=== PATIENT | female | born 1945 | race Caucasian/White ===

== ENCOUNTER 2017-12-06 15:13 | Inpatient (IN) ==
[2017-12-06] MEDS ORDERED: 0.9 % Sodium Chloride 500 ML IVC ONE (16:07)
--- NOTE | 2017-12-06 16:07 | Emergency Department Note ---
Disposition Clinical Impression: Colitis, UTI (urinary tract infection), Diarrhea Disposition: Admitted As Inpatient Condition: Fair Referrals: Addison Jeffery [Primary Care Provider] - Forms: ED Satisfaction Letter General Adult HPI - General Chief complaint: ED Nausea/Vomiting/Diarrhea Stated complaint: "diarrhea,acute kidney injury sent by " Time Seen by Provider: 12/06/17 15:46 Source: family Limitations: age - History of Present Illness Pain Scale: 4 - Related Data Home Medications Medication Instructions Recorded Confirmed Alendronate Sodium 70 mg PO QWEEK 10/04/17 11/03/17 Carvedilol [Coreg] 6.25 mg PO BID 10/04/17 11/03/17 Ferrous Sulfate 325 mg PO DAILY 10/04/17 11/03/17 HYDROcodone/Acet 5/325 mg [[place] 1 tab PO Q6H PRN 10/04/17 11/03/17 5-325 mg] Insulin Glargine [Lantus] 50 unit SQ BID 10/04/17 11/03/17 LORazepam [Ativan] 0.5 mg PO BID 10/04/17 11/03/17 Levothyroxine Sodium 112 mcg PO DAILY 10/04/17 11/03/17 Metformin HCl 1,000 mg PO BID 10/04/17 11/03/17 Pantoprazole Sodium 40 mg PO HS 10/04/17 11/03/17 Rosuvastatin Calcium 5 mg PO HS 10/04/17 11/03/17 Valsartan 40 mg PO DAILY 10/04/17 11/03/17 Previous Rx's Medication Instructions Recorded Furosemide [Lasix] 40 mg PO BID #60 tablet 10/06/17 Potassium Chloride 10 meq PO DAILY #30 tab.er.prt 10/06/17 Allergies Allergy/AdvReac Type Severity Reaction Status Date / Time nitrofurantoin Allergy Rash Verified 10/04/17 13:52 [From Macrobid] Sulfa (Sulfonamide Allergy Rash Verified 10/04/17 13:52 Antibiotics) exenatide [From By[place]] AdvReac Vomiting Verified 10/04/17 13:52 liraglutide [From Victoza] AdvReac Vomiting Verified 10/04/17 13:52 Past Medical History - Past Medical History Medical history: Reports: arthritis, asthma, cancer, cirrhosis, CHF, diabetes, GERD, hypertension, kidney stones, thyroid disease Surgical history: Reports: cataract, cholecystectomy, hysterectomy Psychiatric history: Reports: anxiety, depression, panic disorder - Social History Smoking Status: Never smoker Smokeless Tobacco Status: No Alcohol use: Reports: none Drug use: Reports: none Physical Exam - General Limitations: age Course Vital Signs Temperature 98.9 F 12/06/17 15:18 Pulse Rate 74 12/06/17 15:18 Respiratory Rate 14 12/06/17 15:18 Blood Pressure 125/67 12/06/17 15:18 O2 Sat by Pulse Oximetry 94 12/06/17 15:18 Temperature 98.9 F 12/06/17 15:57 Pulse Rate 78 12/06/17 19:18 Respiratory Rate 20 12/06/17 19:18 Blood Pressure 114/52 12/06/17 19:18 O2 Sat by Pulse Oximetry 94 12/06/17 19:18 Oxygen Delivery Oxygen Delivery Room Air Medical Decision Making - Lab Data Result diagrams: 12/06/17 15:28 12/06/17 15:28 Lab Results 12/06/17 12/06/17 12/06/17 Range/Units 15:28 15:28 16:19 WBC 7.3 D (4.3-11.1) K/mcL RBC 3.31 L (3.82-4.97) M/mcL Hgb 10.6 L D (11.5-15.4) g/dL Hct 32.0 L (35.3-44.9) % MCV 96.7 (83.0-100.0) fL MCH 32.0 (28.0-33.3) pg MCHC 33.1 (31.6-35.5) g/dL RDW 16.2 H (11.5-14.5) % Plt Count 67 L (140-400) K/mcL MPV 11.2 (9.4-12.4) fL Immature Plt Fraction 5.4 (1.1-6.1) % Sodium 138 (136-145) mEq/L Potassium 3.0 L (3.5-5.1) mEq/L Chloride 106 (98-107) mEq/L Carbon Dioxide 26 (23-29) mEq/L BUN 18 (8-23) mg/dL Creatinine 0.87 (0.60-1.20) mg/dL Est GFR ( Amer) > 60 (> 60) Est GFR (Non-Af Amer) > 60 (> 60) BUN/Creatinine Ratio 21 (6-26) Glucose 68 L (70-105) mg/dL Calculated Osmolality 286 (280-300) Calcium 8.3 L (8.6-10.3) mg/dL Total Bilirubin 0.7 (0.3-1.0) mg/dL Direct Bilirubin 0.2 (0.0-0.2) mg/dL Indirect Bilirubin 0.5 (0.0-1.2) mg/dL AST 51 H (13-39) Units/L ALT 37 (7-52) Units/L Alkaline Phosphatase 87 (34-104) Units/L Serum Total Protein 6.1 L (6.4-8.9) g/dL Albumin 3.0 L (3.5-5.7) g/dL Globulin 3.1 (2.4-3.5) g/dL Albumin/Globulin Ratio 1.0 L (1.1-2.2) Lipase 76 (11-82) Units/L Urine Color Yellow (Yellow) Urine Clarity Clear (Clear) Urine pH 6.0 (5.0-8.0) pH Units Ur Specific [place] 1.011 (1.010-1.025) Urine Protein Negative (Neg-Trace) mg/dL Urine Glucose (UA) Normal (Normal) mg/dL Urine Ketones Negative (Negative) mg/dL Urine Blood Negative (Negative) Urine Nitrite Positive A (Negative) Urine Bilirubin Negative (Negative) Urine Urobilinogen Normal (Normal) mg/dL Ur Leukocyte Esterase Moderate H (Negative) Urine Microscopic RBC 0-3 (0-3) per hpf Urine Microscopic WBC 5-15 H (0-3) per hpf Ur Squamous Epith Cells Many H (None-Few) per lpf Urine Bacteria Moderate H (None-Few) per hpf Hyaline Casts None Seen (None-Few) per lpf Stool Occult Bld Scrn (Negative) 12/06/17 Range/Units 18:02 WBC (4.3-11.1) K/mcL RBC (3.82-4.97) M/mcL Hgb (11.5-15.4) g/dL Hct (35.3-44.9) % MCV (83.0-100.0) fL MCH (28.0-33.3) pg MCHC (31.6-35.5) g/dL RDW (11.5-14.5) % Plt Count (140-400) K/mcL MPV (9.4-12.4) fL Immature Plt Fraction (1.1-6.1) % Sodium (136-145) mEq/L Potassium (3.5-5.1) mEq/L Chloride (98-107) mEq/L Carbon Dioxide (23-29) mEq/L BUN (8-23) mg/dL Creatinine (0.60-1.20) mg/dL Est GFR ( Amer) (> 60) Est GFR (Non-Af Amer) (> 60) BUN/Creatinine Ratio (6-26) Glucose (70-105) mg/dL Calculated Osmolality (280-300) Calcium (8.6-10.3) mg/dL Total Bilirubin (0.3-1.0) mg/dL Direct Bilirubin (0.0-0.2) mg/dL Indirect Bilirubin (0.0-1.2) mg/dL AST (13-39) Units/L ALT (7-52) Units/L Alkaline Phosphatase (34-104) Units/L Serum Total Protein (6.4-8.9) g/dL Albumin (3.5-5.7) g/dL Globulin (2.4-3.5) g/dL Albumin/Globulin Ratio (1.1-2.2) Lipase (11-82) Units/L Urine Color (Yellow) Urine Clarity (Clear) Urine pH (5.0-8.0) pH Units Ur Specific [place] (1.010-1.025) Urine Protein (Neg-Trace) mg/dL Urine Glucose (UA) (Normal) mg/dL Urine Ketones (Negative) mg/dL Urine Blood (Negative) Urine Nitrite (Negative) Urine Bilirubin (Negative) Urine Urobilinogen (Normal) mg/dL Ur Leukocyte Esterase (Negative) Urine Microscopic RBC (0-3) per hpf Urine Microscopic WBC (0-3) per hpf Ur Squamous Epith Cells (None-Few) per lpf Urine Bacteria (None-Few) per hpf Hyaline Casts (None-Few) per lpf Stool Occult Bld Scrn Negative (Negative) Attestation Statement - Attestation Attestation: I examined this patient and my medical decision-making was reviewed with the Resident Physician. I agree with the documented findings, disposition and treatment plan as described except to the extent set forth below. Patient presents to the ED with a chief complaint of diarrhea. Onset about a week ago. Patient states a max of 5 episodes of watery diarrhea daily. She has had 2 today. She thinks is been some blood in it for the past 24 hours. Patient does admit to daily antibiotic for UTI prevention. On examination she is in no acute distress laying in bed. Her abdomen is soft. She is complaining of some mild diffuse tenderness but she has no guarding. Plan. Labs. Attempting to obtain a stool sample. Stool Hemoccult. CT abdomen pelvis. CT reviewed. We will check a lactic. Patient has not had any diarrhea since she has been here. IV Flagyl. Admitted to medicine.
[2017-12-06 16:31] LABS: Bilirubin,Urine Negative (Negative); Blood,Urine Negative (Negative); Clarity,Urine Clear (Clear); Color,Urine Yellow (Yellow); Glucose,Urine (UA) Normal (Normal); Ketones,Urine Negative (Negative); Leukocyte Esterase,Urine Moderate (Negative); Nitrite,Urine Positive (Negative); Protein,Urine Negative (Neg-Trace); Specific Gravity,Urine 1.011 (1.010-1.025); Urobilinogen,Urine Normal (Normal)
[2017-12-06 16:34] LABS: Bacteria,Urine Moderate per hpf (None-Few); Hyaline Casts,Urine None Seen per lpf (None-Few); RBC,Urine 0-3 per hpf (0-3); Squamous Epithelial Cell,Urine Many per lpf (None-Few)
[2017-12-06] MEDS ORDERED: Ondansetron 4 MG/2 ML VIAL IVP ONE (16:41)
[2017-12-06] MEDS ORDERED: Hyoscyamine 0.5 MG/ML MLS IVP ONE (16:42)
--- NOTE | 2017-12-06 16:45 | Emergency Department Note ---
Disposition Clinical Impression: Colitis UTI (urinary tract infection) Qualifiers: Urinary tract infection type: site unspecified Hematuria presence: without hematuria Qualified Code(s): N39.0 - Urinary tract infection, site not specified Diarrhea Qualifiers: Diarrhea type: unspecified type Qualified Code(s): R19.7 - Diarrhea, unspecified Disposition: Admitted As Inpatient Condition: Fair Time of Disposition: 19:49 Nausea/Vomiting/Diarrhea HPI - General Chief complaint: ED Nausea/Vomiting/Diarrhea Stated complaint: "diarrhea,acute kidney injury sent by " Time Seen by Provider: 12/06/17 15:46 Source: family Mode of arrival: ambulatory Limitations: age Nursing Notes Reviewed: Yes Vital Signs Reviewed: Yes - History of Present Illness HPI Narrative: 72-year-old female presents with the care of family for concerns of nausea vomiting diarrhea. Notes nonbloody diarrhea over the past week. Notes 5 episodes of loose stools a day. Decreased by mouth intake. Also reports some vomiting. Describes some abdominal discomfort as well. Patient's had a history of gallbladder as well as her appendix removed. Patient denies any chest pain or fevers. No urinary complaints. Patient denies any recent antibiotic use. Sent by the primary care physician for concerns of acute kidney injury and diarrhea. - Related Data Home Medications Medication Instructions Recorded Confirmed Alendronate Sodium 70 mg PO VAZQUEZ 10/04/17 12/06/17 Carvedilol [Coreg] 6.25 mg PO BID 10/04/17 12/06/17 Ferrous Sulfate 325 mg PO HS 10/04/17 12/06/17 HYDROcodone/Acet 5/325 mg [[place] 1 tab PO BID 10/04/17 12/06/17 5-325 mg] Insulin Glargine [Lantus] 50 unit SQ BID 10/04/17 12/06/17 LORazepam [Ativan] 0.5 mg PO BID 10/04/17 12/06/17 Levothyroxine Sodium 112 mcg PO DAILY 10/04/17 12/06/17 Pantoprazole Sodium 40 mg PO HS 10/04/17 12/06/17 Furosemide [Lasix] 40 mg PO DAILY 12/06/17 12/06/17 Furosemide [Lasix] 40 mg PO QPM PRN 12/06/17 12/06/17 Metformin HCl [Metformin HCl] 1,000 mg PO BID 12/06/17 12/06/17 Rosuvastatin Calcium [Rosuvastatin 5 mg PO HS 12/06/17 12/06/17 Calcium] Valsartan [Valsartan] 40 mg PO BID 12/06/17 12/06/17 cephALEXin [Keflex] 250 mg PO HS 12/06/17 12/06/17 Previous Rx's Medication Instructions Recorded Potassium Chloride 10 meq PO DAILY #30 tab.er.prt 10/06/17 Allergies Allergy/AdvReac Type Severity Reaction Status Date / Time nitrofurantoin Allergy Rash Verified 12/06/17 20:00 [From Macrobid] Sulfa (Sulfonamide Allergy Rash Verified 12/06/17 20:00 Antibiotics) exenatide [From [place]] AdvReac Vomiting Verified 12/06/17 20:00 liraglutide [From Victoza] AdvReac Vomiting Verified 12/06/17 20:00 All systems ED: reviewed and negative except as stated. Constitutional: Denies: fever Cardiovascular: Denies: chest pain Respiratory: Reports: cough Gastrointestinal: Reports: abdominal pain, nausea, vomiting, diarrhea Past Medical History - Past Medical History Source: patient Medical history: Reports: arthritis, asthma, cancer, cirrhosis, CHF, diabetes, GERD, hypertension, kidney stones, thyroid disease Surgical history: Reports: cataract, cholecystectomy, hysterectomy Psychiatric history: Reports: anxiety, depression, panic disorder - Social History Smoking Status: Never smoker Smokeless Tobacco Status: No Alcohol use: Reports: none Drug use: Reports: none Physical Exam - General Limitations: age General appearance: alert, in no apparent distress - Head Head exam: atraumatic, normocephalic, normal inspection - Eye Eye exam: Present: normal appearance, EOMI - ENT ENT exam: normal exam, mucous membranes moist - Neck Neck exam: Present: normal inspection, trachea midline - Chest Chest inspection: Present: normal inspection, symmetric chest wall rise - Respiratory Respiratory exam: Absent: respiratory distress, prolonged expiratory phase - Cardiovascular Cardiovascular exam: Present: regular rate, normal rhythm. Absent: systolic murmur - Abdominal Exam Abdominal exam: Present: soft, Non-Tender. Absent: guarding, rebound - Extremities Exam Extremities exam: Present: normal inspection. Absent: pedal edema - Back Exam Back exam: Present: normal inspection - Neurological Exam Neurological exam: Present: alert, oriented X3 - Skin Skin exam: Present: warm, dry, intact, normal color Course Course Narrative: Patient will get basic labs CT scan abdomen pelvis - Reevaluation(s) Reevaluation #1: Patient does have a UTI. family states that she does have antibiotics daily for chronic UTIs. Looking back in the past the patient did grow Klebsiella as well as entero that was pansensitive. Patient was given a dose of Rocephin in the ED. Time: 17:45 Reevaluation #2: Patient's repeat abdominal exam is unremarkable. Family is agreeable with plan of care which shows colitis Time: 19:48 Reevaluation #3: Hospitalist would like blood cultures and placed on D5 normal saline. Time: 19:49 Vital Signs Temperature 98.9 F 12/06/17 15:18 Pulse Rate 74 12/06/17 15:18 Respiratory Rate 14 12/06/17 15:18 Blood Pressure 125/67 12/06/17 15:18 O2 Sat by Pulse Oximetry 94 12/06/17 15:18 Temperature 98.2 F 12/06/17 21:01 Pulse Rate 73 12/06/17 21:01 Respiratory Rate 14 12/06/17 21:01 Blood Pressure 106/63 12/06/17 21:01 O2 Sat by Pulse Oximetry 95 12/06/17 21:01 Oxygen Delivery Oxygen Delivery Room Air Nausea/Vomiting/Diarrhea - MDM Narrative Medical decision making narrative: Patient presented for nausea vomiting diarrhea. Patient workup reveals colitis primarily on the right hemicolon. Patient is also noted of UTI. Patient was treated with Rocephin initially for the UTI. Given her history of colitis the patient will be treated with Flagyl. Patient cannot keep anything down. Patient is high risk for decompensation and acute kidney injury. Patient will be admitted to the hospitalist service for symptomatic treatment. Patient labs show stable hemoglobin. No significant white count. Patient possibly has risk factors for C. difficile but has not been able to provide a C. difficile sample in the ED. Patient is agreeable with this plan of care. - Lab Data Lab results reviewed: Yes I reviewed the patient's lab results. Result diagrams: 12/06/17 15:28 12/06/17 15:28 Lab Results 12/06/17 12/06/17 12/06/17 Range/Units 15:28 15:28 16:19 WBC 7.3 D (4.3-11.1) K/mcL RBC 3.31 L (3.82-4.97) M/mcL Hgb 10.6 L D (11.5-15.4) g/dL Hct 32.0 L (35.3-44.9) % MCV 96.7 (83.0-100.0) fL MCH 32.0 (28.0-33.3) pg MCHC 33.1 (31.6-35.5) g/dL RDW 16.2 H (11.5-14.5) % Plt Count 67 L (140-400) K/mcL MPV 11.2 (9.4-12.4) fL Immature Plt Fraction 5.4 (1.1-6.1) % Sodium 138 (136-145) mEq/L Potassium 3.0 L (3.5-5.1) mEq/L Chloride 106 (98-107) mEq/L Carbon Dioxide 26 (23-29) mEq/L BUN 18 (8-23) mg/dL Creatinine 0.87 (0.60-1.20) mg/dL Est GFR ( Amer) > 60 (> 60) Est GFR (Non-Af Amer) > 60 (> 60) BUN/Creatinine Ratio 21 (6-26) Glucose 68 L (70-105) mg/dL Calculated Osmolality 286 (280-300) Lactic Acid (0.5-2.2) mmol/L Calcium 8.3 L (8.6-10.3) mg/dL Magnesium (1.6-2.6) mg/dL Total Bilirubin 0.7 (0.3-1.0) mg/dL Direct Bilirubin 0.2 (0.0-0.2) mg/dL Indirect Bilirubin 0.5 (0.0-1.2) mg/dL AST 51 H (13-39) Units/L ALT 37 (7-52) Units/L Alkaline Phosphatase 87 (34-104) Units/L Serum Total Protein 6.1 L (6.4-8.9) g/dL Albumin 3.0 L (3.5-5.7) g/dL Globulin 3.1 (2.4-3.5) g/dL Albumin/Globulin Ratio 1.0 L (1.1-2.2) Lipase 76 (11-82) Units/L Urine Color Yellow (Yellow) Urine Clarity Clear (Clear) Urine pH 6.0 (5.0-8.0) pH Units Ur Specific [place] 1.011 (1.010-1.025) Urine Protein Negative (Neg-Trace) mg/dL Urine Glucose (UA) Normal (Normal) mg/dL Urine Ketones Negative (Negative) mg/dL Urine Blood Negative (Negative) Urine Nitrite Positive A (Negative) Urine Bilirubin Negative (Negative) Urine Urobilinogen Normal (Normal) mg/dL Ur Leukocyte Esterase Moderate H (Negative) Urine Microscopic RBC 0-3 (0-3) per hpf Urine Microscopic WBC 5-15 H (0-3) per hpf Ur Squamous Epith Cells Many H (None-Few) per lpf Urine Bacteria Moderate H (None-Few) per hpf Hyaline Casts None Seen (None-Few) per lpf Stool Occult Bld Scrn (Negative) 12/06/17 12/06/17 12/06/17 Range/Units 18:02 19:43 19:43 WBC (4.3-11.1) K/mcL RBC (3.82-4.97) M/mcL Hgb (11.5-15.4) g/dL Hct (35.3-44.9) % MCV (83.0-100.0) fL MCH (28.0-33.3) pg MCHC (31.6-35.5) g/dL RDW (11.5-14.5) % Plt Count (140-400) K/mcL MPV (9.4-12.4) fL Immature Plt Fraction (1.1-6.1) % Sodium (136-145) mEq/L Potassium (3.5-5.1) mEq/L Chloride (98-107) mEq/L Carbon Dioxide (23-29) mEq/L BUN (8-23) mg/dL Creatinine (0.60-1.20) mg/dL Est GFR ( Amer) (> 60) Est GFR (Non-Af Amer) (> 60) BUN/Creatinine Ratio (6-26) Glucose (70-105) mg/dL Calculated Osmolality (280-300) Lactic Acid 1.0 (0.5-2.2) mmol/L Calcium (8.6-10.3) mg/dL Magnesium 1.5 L (1.6-2.6) mg/dL Total Bilirubin (0.3-1.0) mg/dL Direct Bilirubin (0.0-0.2) mg/dL Indirect Bilirubin (0.0-1.2) mg/dL AST (13-39) Units/L ALT (7-52) Units/L Alkaline Phosphatase (34-104) Units/L Serum Total Protein (6.4-8.9) g/dL Albumin (3.5-5.7) g/dL Globulin (2.4-3.5) g/dL Albumin/Globulin Ratio (1.1-2.2) Lipase (11-82) Units/L Urine Color (Yellow) Urine Clarity (Clear) Urine pH (5.0-8.0) pH Units Ur Specific [place] (1.010-1.025) Urine Protein (Neg-Trace) mg/dL Urine Glucose (UA) (Normal) mg/dL Urine Ketones (Negative) mg/dL Urine Blood (Negative) Urine Nitrite (Negative) Urine Bilirubin (Negative) Urine Urobilinogen (Normal) mg/dL Ur Leukocyte Esterase (Negative) Urine Microscopic RBC (0-3) per hpf Urine Microscopic WBC (0-3) per hpf Ur Squamous Epith Cells (None-Few) per lpf Urine Bacteria (None-Few) per hpf Hyaline Casts (None-Few) per lpf Stool Occult Bld Scrn Negative (Negative) - Radiology Data Radiology results reviewed: Yes I reviewed the patient's radiology results. Abdomen/Pelvis CT 12/06/17 17:40 IMPRESSION: 1. Circumferential colonic wall thickening throughout much of the colon consistent with colitis more severe in the right hemicolon. 2. Mild to moderate ascitic fluid. 3. Liver appears slightly nodular in the spleen is enlarged which is suspicious for cirrhosis. 4. Scattered colonic diverticula. Mesentery is injected and there is some shotty mesenteric lymph nodes. 5. Other findings as above. D/ / Sarah Fernandez MD / Sarah Fernandez MD Interpreting Provider: Sarah Fernandez MD
[2017-12-06 16:55] LABS: Mean Platelet Volume 11.2 fL (9.4-12.4)
[2017-12-06 16:57] LABS: Hemoglobin 10.6 g/dL (11.5-15.4); Immature Platelets 5.4 % (1.1-6.1); Mean Corpuscular HGB Conc 33.1 g/dL (31.6-35.5); Mean Corpuscular Volume 96.7 fL (83.0-100.0); Red Blood Count 3.31 M/mcL (3.82-4.97); Red Cell Distribution Width 16.2 % (11.5-14.5)
[2017-12-06 17:06] LABS: Alanine Aminotransferase 37 Units/L (7-52); Alkaline Phosphatase 87 Units/L (34-104); Aspartate Amino Transferase 51 Units/L (13-39); BUN/Creatinine Ratio 21 (6-26); Bilirubin,Direct 0.2 mg/dL (0.0-0.2); Bilirubin,Indirect 0.5 mg/dL (0.0-1.2); Bilirubin,Total 0.7 mg/dL (0.3-1.0); Blood Urea Nitrogen 18 mg/dL (8-23); Calcium 8.3 mg/dL (8.6-10.3); Carbon Dioxide 26 mEq/L (23-29); Chloride 106 mEq/L (98-107); Globulin 3.1 g/dL (2.4-3.5); Glucose 68 mg/dL (70-105); Lipase 76 Units/L (11-82); Osmolality,Calculated 286 (280-300); Sodium 138 mEq/L (136-145); Total Protein 6.1 g/dL (6.4-8.9); eGFR For Non-African Americans > 60 (> 60)
[2017-12-06] MEDS ORDERED: cefTRIAXone 1,000 MG in Water for inj. (sterile) 20 ML 10 ML IVP ONE (17:41)
[2017-12-06] MEDS ORDERED: MetroNIDAZOLE 500 MG/100 ML 500 MG/100 ML BAG IVPB ONE (19:29)
[2017-12-06] MEDS: D5% in 0.9% NACL 1,000 ML IVC SCH (21:23)
[2017-12-06] MEDS ORDERED: *HR* OxyCODONE Immed Rel 5 MG TABLET PO PRN (22:00)
[2017-12-06] MEDS ORDERED: Ibuprofen 400 MG TABLET PO PRN (22:00)
[2017-12-06] MEDS ORDERED: Naloxone 0.4 MG/ML INJ IVP PRN (22:00)
[2017-12-06] MEDS ORDERED: Dextrose Gel 15 GM/37.5 ML TUBE PO PRN ×2 (22:02)
[2017-12-06] MEDS ORDERED: *HR* Dextrose 50 % in Water (Syg) 50 ML SYRINGE IVP PRN (22:02)
[2017-12-06] MEDS ORDERED: D5% in Water 1,000 ML IVC PRN (22:02)
--- NOTE | 2017-12-06 22:10 | Internal Med History&Physical ---
<Gilson Tavarez - Last Filed: 12/07/17 00:30> Date of Encounter: 12/07/17 Time of Encounter: 22:08 Internal Medicine - H&P: HPI Chief complaint: Diarrhea Admitted From: Home Plans for Post Hospital Care: Home History of present illness: Ms. 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 Patient states that she has had diarrhea for the past week. She reports that it is changed in character from dark brown to green to yellow. She states that a couple days ago she felt like she had some blood that was just a one-time episode. She reports some mild diffuse abdominal pain. She denies nausea or vomiting. She reports that every time she eats she feels like things go right through her. She states she is had chronic diarrhea in the past but nothing this bad. She reports that she always feel cold but denies fevers. She reports mildly worsening lower extremity edema. She reports low blood sugars for the past couple days. She states she has been taking her Lantus, last dose yesterday morning but has not been eating well. She denies chest pain, shortness of breath, dysuria, hematuria, urinary frequency. Past Med Surg Social Fam HX - Past Medical History Medical history: arthritis, asthma, cancer, cirrhosis, CHF, diabetes, GERD, hypertension, kidney stones, thyroid disease Additional medical history: Uterine cancer Psychiatric history: anxiety, depression, panic disorder - Past Surgical History Surgical History: cataract, cholecystectomy, hysterectomy Additional surgical history: bowel surgery - egd - colonoscopy. back sugery - Social History Smoking Status: Never smoker Smokeless Tobacco Status: No Alcohol use: none Drug use: none - Family History Mother Family Member Ethnicity: Non- Living Status: Hx Family Endocrine Disorder: Yes (DM) Father Family Member Ethnicity: Non- Living Status: Hx Family Cardiac Disorders: Yes (CAD, [place]) Hx Family Cancer: Yes (Lung) Brother Family Member Ethnicity: Non- Living Status: Hx Family Cancer: Yes (Lung/Kidney) Hx Family Endocrine Disorder: Yes (DM) Sister Family Member Ethnicity: Non- Living Status: Still Living Hx Family Endocrine Disorder: Yes (DM) Internal Medicine - H&P: Meds Alendronate Sodium 70 mg PO VAZQUEZ 10/04/17 [History] Carvedilol [Coreg] 6.25 mg PO BID 10/04/17 [History] Ferrous Sulfate 325 mg PO HS 10/04/17 [History] HYDROcodone/Acet 5/325 mg [[place] 5-325 mg] 1 tab PO BID 10/04/17 [History] Insulin Glargine [Lantus] 50 unit SQ BID 10/04/17 [History] LORazepam [Ativan] 0.5 mg PO BID 10/04/17 [History] Levothyroxine Sodium 112 mcg PO DAILY 10/04/17 [History] Pantoprazole Sodium 40 mg PO HS 10/04/17 [History] Potassium Chloride 10 meq PO DAILY #30 tab.er.prt 10/06/17 [Rx] Furosemide [Lasix] 40 mg PO DAILY 12/06/17 [History] Furosemide [Lasix] 40 mg PO QPM PRN 12/06/17 [History] Metformin HCl [Metformin HCl] 1,000 mg PO BID 12/06/17 [History] Rosuvastatin Calcium [Rosuvastatin Calcium] 5 mg PO HS 12/06/17 [History] Valsartan [Valsartan] 40 mg PO BID 12/06/17 [History] cephALEXin [Keflex] 250 mg PO HS 12/06/17 [History] 3 Allergy/AdvReac Type Severity Reaction Status Date / Time nitrofurantoin Allergy Rash Verified 12/06/17 20:00 [From Macrobid] Sulfa (Sulfonamide Allergy Rash Verified 12/06/17 20:00 Antibiotics) exenatide [From [place]] AdvReac Vomiting Verified 12/06/17 20:00 liraglutide [From Victoza] AdvReac Vomiting Verified 12/06/17 20:00 All Systems PM: A 10-system review of systems was performed and is negative for pertinent findings except as documented above in the HPI. - Constitutional Constitutional: chills, no fever(s) - EENT Eyes: no change in vision Nose, mouth and throat: no sinus pain, no sinus pressure, no sore throat - Cardiovascular Cardiovascular ROS IM: edema, no chest pain, no dyspnea, no lightheadedness, no syncope - Respiratory Respiratory: no cough, no dyspnea, no hemoptysis, no dyspnea on exertion, no excessive phlegm production, no change in phlegm color - Gastrointestinal Gastrointestinal: abdominal pain, change in bowel habits, diarrhea, nausea, no hematemesis, no hematochezia, no melena, no vomiting - Genitourinary Genitourinary: no dysuria, no urinary frequency, no urinary hesitancy, no urinary urgency - Musculoskeletal Musculoskeletal ROS IM: no back pain, no numbness, no tingling - Integumentary Integumentary IM: no erythema, no new lesions, no rash - Neurological Neurological ROS: no disequilibrium, no dizziness, no focal weakness - Psychiatric Psychiatric: no anxiety, no depression - Endocrine Endocrine IM: no polydipsia, no polyuria - Hematologic/Lymphatic Hematologic/Lymphatic: no easy bleeding, no easy bruising - Allergic/Immunologic Allergic/Immunologic: no GI upset with certain foods - Constitutional Vitals: Temp Pulse Resp BP Pulse Ox 98.2 F 73 14 106/63 95 12/06/17 21:01 12/06/17 21:01 12/06/17 21:01 12/06/17 21:01 12/06/17 21:01 General appearance: Present: A&O X 3, pleasant, no acute distress Exam: . - Head Head exam: Present: atraumatic, normal inspection, normocephalic - Eye Eye exam: Present: EOMI - ENT ENT exam: Present: mucous membranes dry, normal oropharynx - Neck Neck exam general surgery: Present: full ROM - Respiratory Respiratory exam: Present: CTAB. Absent: rales, respiratory distress, rhonchi, wheezes, tachypnea - Cardiovascular Cardiovascular exam: Present: RRR. Absent: diastolic murmur, irregular rhythm, systolic murmur, tachycardia - GI/Abdominal GI/Abdominal exam: Present: normal bowel sounds, soft, tenderness (mild, diffuse ). Absent: distended, guarding, rigid - Extremities Exam Extremities exam: Present: normal inspection, pedal edema (1+ bilaterally), warm. Absent: tenderness - Neurological Exam Neurological exam: Present: alert, oriented X3, no focal deficits - Skin Skin exam: Present: dry, intact, warm Internal Med - H&P Results - Labs CBC & Chem 7: 12/06/17 15:28 12/06/17 15:28 - Assessment and plan (1) Colitis Current Visit: Yes Status: Acute Assessment and plan: She has had diarrhea for the past week and CT shows colonic wall thickening concerning for colitis. Given her antibiotic exposure concern for C. difficile. Patient received one-time dose of Flagyl in the emergency department. GI panel pending, in the meantime will treat empirically for c. diff with PO vancomycin and PO flagyl. Consider surgery consult in AM for pancolitis (2) RAMOS (nonalcoholic steatohepatitis) Current Visit: No Status: Chronic Assessment and plan: With chronic thrombocytopenia. No evidence of acute changes. Continue to monitor. (3) Diabetes Current Visit: No Status: Chronic Assessment and plan: Patient has history of diabetes and takes Lantus at home. Patient was hypoglycemic on arrival, likely due to patient continuing to take her insulin but not eating much. Patient is asymptomatic from this. Have instituted low- dose sliding scale with hypoglycemic protocol orders to treat her hypoglycemia. Anticipate that once the patient is eating her sugars will increase and will require her long-acting insulin to be restarted but will hold for now. 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 At this time she has no symptoms. UA shows positive nitrites and leukocyte esterase but without symptoms patient is asymptomatic bacteriuria and will hold treatment given for C. difficile colitis as discussed above - Time Spent With Patient Total time spent is greater than 50% in coordination of care (as documented) at patient's floor/unit and/or counseling patient: <JuancarlosbennieJamar - Last Filed: 12/07/17 06:51> Date of Encounter: 12/07/17 Time of Encounter: 04:30 - Constitutional Constitutional: chills, no fever(s), no night sweats - EENT Nose, mouth and throat: no nasal congestion, no sore throat - Cardiovascular Cardiovascular ROS IM: no chest pain, no dyspnea - Respiratory Respiratory: no cough, no hemoptysis, no chest congestion, no excessive phlegm production - Gastrointestinal Gastrointestinal: abdominal pain, diarrhea, no hematemesis, no hematochezia, no melena, no vomiting - Genitourinary Genitourinary: no dysuria, no flank pain, no hematuria - Integumentary Integumentary IM: no rash, no jaundice - Neurological Neurological ROS: no focal weakness - Psychiatric Psychiatric: no anxiety, no depression - Endocrine Endocrine IM: no polydipsia, no polyuria - Constitutional Vitals: Temp Pulse Resp BP Pulse Ox 98.3 F 74 16 117/65 93 12/07/17 05:32 12/07/17 05:32 12/07/17 05:32 12/07/17 05:32 12/07/17 05:32 General appearance: Present: A&O X 3, no acute distress - Eye Eye exam: Present: PERRL. Absent: scleral icterus - ENT ENT exam: Present: mucous membranes dry - Neck Neck exam general surgery: Present: supple - Respiratory Respiratory exam: Present: CTAB. Absent: rales, rhonchi, wheezes - Cardiovascular Cardiovascular exam: Present: RRR - GI/Abdominal GI/Abdominal exam: Present: normal bowel sounds, soft, tenderness (minimal). Absent: guarding, rebound - Extremities Exam Extremities exam: Present: warm, radial pulses palpable and symmetrical - Back Exam Back exam: Absent: CVA tenderness (L), CVA tenderness (R) - Neurological Exam Neurological exam: Present: alert, oriented X3, no focal deficits - Skin Skin exam: Present: dry, intact, warm Internal Med - H&P Results - Labs CBC & Chem 7: 12/07/17 06:07 12/07/17 06:07 Labs: Short CBC 12/07/17 Range/Units 06:07 WBC 3.9 L (4.3-11.1) K/mcL Hgb 9.4 L (11.5-15.4) g/dL Hct 28.8 L (35.3-44.9) % Plt Count 54 L (140-400) K/mcL Neutrophils # 2.5 (1.6-8.9) K/mcL BMP 12/07/17 06:07 Sodium 140 Potassium 3.4 L Chloride 112 H Carbon Dioxide 24 BUN 14 Creatinine 0.76 Glucose 80 Calcium 7.7 L Liver Function 12/07/17 Range/Units 06:07 Total Bilirubin 0.7 (0.3-1.0) mg/dL AST 42 H (13-39) Units/L ALT 30 (7-52) Units/L Alkaline Phosphatase 73 (34-104) Units/L Albumin 2.4 L (3.5-5.7) g/dL - Assessment and plan (1) RAMOS (nonalcoholic steatohepatitis) Current Visit: No Status: Chronic (2) Diabetes Current Visit: No Status: Chronic Qualifiers: Diabetes mellitus type: type 2 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 status Diabetes mellitus complication status : with unspecified complications Qualified Code(s): E11.8 - Type 2 diabetes mellitus with unspecified complications (3) DVT prophylaxis Current Visit: No Status: Acute (4) Colitis Current Visit: Yes Status: Acute (5) Recurrent UTI Current Visit: Yes Status: Acute - Time Spent With Patient Total time spent is greater than 50% in coordination of care (as documented) at patient's floor/unit and/or counseling patient: - Attending Attestation I discussed the patient [place], past medical history, review of systems, lab data , imaging findings, and exam findings Dr. Stockton. I then saw and examined patient independently. Patient complains mostly of voluminous and frequent diarrhea. She has minimal abdominal pain on exam. She has had an appetite, but with any food ingestion, she has had severe diarrhea. She has had some nausea but no vomiting. She denies any cough, chest pain, shortness of breath. Given her history of chronic antibiotic prophylaxis for recurrent UTI, I am highly concerned and suspicious for Clostridium difficile colitis. Her exam is rather benign at this time. We will consult GI and likely surgery to help co- manage patient will she is in the hospital. Other than my comments above and noted exam findings, I agree with Dr. Stockton' s assessment and plan.
[2017-12-07] MEDS: Vancomycin Oral Soln 125 MG/2.5 ML UDC PO SCH ×5 (03:20→22:20)
[2017-12-07] MEDS ORDERED: MetroNIDAZOLE 500 MG/100 ML 500 MG/100 ML BAG IVPB SCH (06:00)
[2017-12-07] MEDS ORDERED: *HR* Enoxaparin 40 MG/0.4 ML SYRINGE SQ SCH (06:00)
[2017-12-07 06:19] LABS: Basophils % 0.3 %; Eosinophils % 2.3 %
[2017-12-07 06:21] LABS: Eosinophils # 0.1 K/mcL (0.0-0.6); Hematocrit 28.8 % (35.3-44.9); Hemoglobin 9.4 g/dL (11.5-15.4); Lymphocytes # 0.9 K/mcL (0.6-4.6); Lymphocytes % 23.9 %; Mean Corpuscular HGB Conc 32.6 g/dL (31.6-35.5); Mean Platelet Volume 10.7 fL (9.4-12.4); Monocytes # 0.3 K/mcL (0.0-1.3); Monocytes % 8.7 %; Neutrophils # 2.5 K/mcL (1.6-8.9); Red Blood Count 2.94 M/mcL (3.82-4.97); Red Cell Distribution Width 16.6 % (11.5-14.5); Segmented Neutrophils % 63.8 %
[2017-12-07 06:26] LABS: INR 1.6; Prothrombin Time 17.9 Seconds (9.4-12.1)
[2017-12-07 06:27] LABS: Platelet Count 54 K/mcL (140-400)
[2017-12-07 06:38] LABS: Alanine Aminotransferase 30 Units/L (7-52); Albumin 2.4 g/dL (3.5-5.7); Albumin/Globulin Ratio 0.9 (1.1-2.2); Alkaline Phosphatase 73 Units/L (34-104); Aspartate Amino Transferase 42 Units/L (13-39); BUN/Creatinine Ratio 18 (6-26); Bilirubin,Total 0.7 mg/dL (0.3-1.0); Blood Urea Nitrogen 14 mg/dL (8-23); Calcium 7.7 mg/dL (8.6-10.3); Carbon Dioxide 24 mEq/L (23-29); Chloride 112 mEq/L (98-107); Globulin 2.7 g/dL (2.4-3.5); Glucose 80 mg/dL (70-105); Magnesium 1.9 mg/dL (1.6-2.6); Osmolality,Calculated 289 (280-300); Potassium 3.4 mEq/L (3.5-5.1); Sodium 140 mEq/L (136-145); Total Protein 5.1 g/dL (6.4-8.9); eGFR For Non-African Americans > 60 (> 60)
--- NOTE | 2017-12-07 08:05 | Internal Med Progress Note ---
Hospitalist Progress Note - Encounter Date of Encounter: 12/07/17 Time of Encounter: 08:00 - Exam Vitals: Temp Pulse Resp BP Pulse Ox 98.6 F 79 18 115/67 95 12/07/17 07:23 12/07/17 07:23 12/07/17 07:23 12/07/17 07:23 12/07/17 07:23 Exam: Gen - Awake, alert, oriented x 3, no acute distress HEENT - NCAT, PERRLA, EOMI, hearing grossly intact, oropharynx benign CV - RRR, normal S1 and S2, no M/R/G, no BLE edema Resp - Normal WOB, CTAB, no W/R/R GI - Soft, NT/ND, no masses, normal bowel sounds, Skin - Warm, dry, no rashes/lesions/ulcers Psych - Normal mood and affect, no depression or anxiety - Assessment and Plan (1) C. difficile colitis Current Visit: Yes Status: Acute Assessment and Plan: She has had diarrhea for the past week and CT shows colonic wall thickening concerning for colitis. Given her antibiotic exposure concern for C. difficile Started on po vanc and po flagyl overnight. C diff tox came back positive. Will continue on po vancomycin and discontinue metronidazole. GI recs appreciated (2) RAMOS (nonalcoholic steatohepatitis) Current Visit: No Status: Chronic Assessment and Plan: With chronic thrombocytopenia. No evidence of acute changes. Continue to monitor. (3) Diabetes Current Visit: Yes Status: Chronic Assessment and Plan: Patient has history of diabetes and takes Lantus at home. Patient was hypoglycemic on arrival, likely due to patient continuing to take her insulin but not eating much. Continue LDSS (4) Recurrent UTI Current Visit: Yes Status: Acute Assessment and Plan: Patient has recurrent UTIs that she takes Keflex on a daily basis for. Currently asymptomatic (5) Morbid obesity Current Visit: Yes Status: Acute Assessment and Plan: Diet and exercise (6) Chronic diastolic (congestive) heart failure Current Visit: Yes Status: Acute Assessment and Plan: Continue on po lasix (7) DVT prophylaxis Current Visit: Yes Status: Acute Assessment and Plan: Lovenox 40mg SQ daily - Time Spent with Patient Total time spent is greater than 50% in coordination of care (as documented) at patient's floor/unit and/or counseling patient: Internal Medicine: Result - Labs CBC & Chem 7: 12/07/17 06:07 12/07/17 06:07 Labs: Short CBC 12/07/17 Range/Units 06:07 WBC 3.9 L (4.3-11.1) K/mcL Hgb 9.4 L (11.5-15.4) g/dL Hct 28.8 L (35.3-44.9) % Plt Count 54 L (140-400) K/mcL Neutrophils # 2.5 (1.6-8.9) K/mcL BMP 12/07/17 06:07 Sodium 140 Potassium 3.4 L Chloride 112 H Carbon Dioxide 24 BUN 14 Creatinine 0.76 Glucose 80 Calcium 7.7 L Liver Function 12/07/17 Range/Units 06:07 Total Bilirubin 0.7 (0.3-1.0) mg/dL AST 42 H (13-39) Units/L ALT 30 (7-52) Units/L Alkaline Phosphatase 73 (34-104) Units/L Albumin 2.4 L (3.5-5.7) g/dL - ABG Interpretation ABG results: PT/INR, D-dimer PT 17.9 Seconds (9.4-12.1) H 12/07/17 06:07 Consult Discharge Plan - Plan Referrals: Addison Jeffery [Primary Care Provider] - (3) Diabetes Qualifiers: Diabetes mellitus type: type 2 Diabetes mellitus snf insulin use: unspecified snf insulin use status Diabetes mellitus complication status : with unspecified complications Qualified Code(s): E11.8 - Type 2 diabetes mellitus with unspecified complications
[2017-12-07] MEDS: Insulin LISPRO 300 UNITS/3 ML VIAL SQ SCH ×4 (08:31→22:32)
[2017-12-07] MEDS: Valsartan 80 MG TABLET PO SCH ×2 (08:42→22:21)
[2017-12-07] MEDS: Potassium Chloride Elixir 20 MEQ/15 ML UDC PO SCH ×2 (08:43→12:18)
[2017-12-07] MEDS: *HR* LORazepam 0.5 MG TABLET PO SCH ×2 (08:43→22:19)
[2017-12-07] MEDS: Furosemide 40 MG TABLET PO SCH (08:45)
[2017-12-07] MEDS ORDERED: metroNIDAZOLE 500 MG TABLET PO SCH (09:00)
[2017-12-07] MEDS: D5% in 0.9% NACL 1,000 ML IVC SCH (11:15)
--- NOTE | 2017-12-07 11:21 | Gastroenterology Consult Note ---
<ChowdhuryGilson Washington - Last Filed: 12/07/17 11:27> Date of Encounter: 12/07/17 Time of Encounter: 10:20 - Assessment and plan (1) Colitis Current Visit: Yes Status: Acute Assessment and plan: CT A/P with circumferential colonic wall thickening throughout much of the colon consistent with colitis more severe in the right hemicolon, mild to moderate ascities. Consider colonoscopy outpatient vs inpatient, will discuss with Dr. Rosales. (2) 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 Current Visit: Yes Status: Acute Assessment and plan: MELD-Na 12 and Child-Avendano class B. Last liver US 01/30/2017 with no liver mass. AFP 5 on 01/30/2017. Check liver US and AFP to r/o HCC. Last EGD 08/06/2017 with grade 1 esophageal varices, multiple gastric polyps, and gastritis. Recommended repeat EGD in one year. (3) Diarrhea Current Visit: Yes Status: Acute Assessment and plan: GI panel pending. Patient received one-time dose of Flagyl in the ED and then started on PO Vancomycin and PO Flagyl to treat empirically for C diff. Qualifiers: Diarrhea type: unspecified type Qualified Code(s): R19.7 - Diarrhea, unspecified - Time Spent With Patient Total time spent is greater than 50% in coordination of care (as documented) at patient's floor/unit and/or counseling patient: GI History of Present Illness - Data of Consult Patient: known to practice within the last 3 years Consult date: 12/07/17 Requesting Physician: Jamar Calvillo MD - Consult Narrative Reason for consult: Colitis History of present illness: Ms. 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 She reports that every time she eats she feels like things go right through her. She states that a couple days ago she felt like she had some blood that was just a one-time episode. She reports some mild diffuse abdominal pain. She denies fever, chills, chest pain, SOB, nausea, vomiting, melena. CT A/P with circumferential colonic wall thickening throughout much of the colon consistent with colitis more severe in the right hemicolon, mild to moderate ascities. Patient received one-time dose of Flagyl in the ED and then started on PO Vancomycin and PO Flagyl to treat empirically for C diff. Procedures: EGD 08/06/2017 Dr. Davye: Grade I esophageal varices, multiple gastric polyps, gastritis, repeat 1 year. EGD 06/08/2016 Dr. Davey: Grade I esophageal varices, few gastric polyps, single non-bleeding AVM treated with APC, single gastric polyp. Capsule endoscopy 12/05/2014: No source of blood loss noted. EGD 11/05/2014 Dr. Daigle: Multiple hyperplastic gastric polyps. Colonoscopy 11/05/2014 Dr. Daigle: Normal. NSAIDs: None Anticoagulation: None Past Med Surg Social Fam HX - Past Medical History Medical history: arthritis, asthma, cancer, cirrhosis, CHF, diabetes, GERD, hypertension, kidney stones, thyroid disease Additional medical history: Uterine cancer Psychiatric history: anxiety, depression, panic disorder - Past Surgical History Surgical History: cataract, cholecystectomy, hysterectomy Additional surgical history: bowel surgery - egd - colonoscopy. back sugery - Social History Smoking Status: Never smoker Smokeless Tobacco Status: No Alcohol use: none Drug use: none - Family History Mother Family Member Ethnicity: Non- Living Status: Hx Family Endocrine Disorder: Yes (DM) Father Family Member Ethnicity: Non- Living Status: Hx Family Cardiac Disorders: Yes (CAD, [place]) Hx Family Cancer: Yes (Lung) Brother Family Member Ethnicity: Non- Living Status: Hx Family Cancer: Yes (Lung/Kidney) Hx Family Endocrine Disorder: Yes (DM) Sister Family Member Ethnicity: Non- Living Status: Still Living Hx Family Endocrine Disorder: Yes (DM) - Gastrointestinal Gastrointestinal: Present: as per HPI - Constitutional Constitutional: as per HPI - EENT Eyes: as per HPI Ears: Present: as per HPI Nose, mouth and throat: Present: as per HPI - Cardiovascular Cardiovascular ROS: Present: as per HPI - Respiratory Respiratory IM: Present: as per HPI - Genitourinary Genitourinary: Absent: change in color, Urinary frequency - Neurological ROS Neurological GI: Present: as per HPI - Hematologic/Lymphatic Hematologic/Lymphatic pediatric: Present: as per HPI - Musculoskeletal Musculoskeletal ROS GI: Present: as per HPI - Integumentary Integumentary GI: Present: as per HPI - Psychiatric ROS Psychiatric GI: Present: as per HPI - Endocrine Endocrine IM: Present: as per HPI - Constitutional Vitals: Temp Pulse Resp BP Pulse Ox 98.3 F 66 18 113/68 95 12/07/17 10:55 12/07/17 10:55 12/07/17 10:55 12/07/17 10:55 12/07/17 10:55 General appearance: Present: cooperative, A&O X 3, no acute distress, answers questions appropriately - Head Head exam: Present: atraumatic, normocephalic - Eye Eye exam: Present: normal appearance, sclera anicteric - ENT ENT exam: Present: mucous membranes moist - Neck Neck exam general surgery: Present: normal inspection, trachea midline - Respiratory Respiratory exam: Present: CTAB. Absent: rales, rhonchi - Cardiovascular Cardiovascular exam: Present: RRR, +S1, +S2 - GI/Abdominal GI/Abdominal exam: Present: normal bowel sounds, soft, tenderness (mild tenderness with palpation), no peritoneal signs. Absent: distended, firm, guarding - Rectal Rectal exam: Present: deferred - Extremities Exam Extremities exam: Present: warm - Neurological Exam Neurological exam: Present: no focal deficits - Psychiatric Psychiatric exam: Present: normal affect, normal mood - Skin Skin exam: Present: dry, intact, normal color, warm Results - Labs CBC & Chem 7: 12/07/17 06:07 12/07/17 06:07 Labs: Last Result Calcium 7.7 mg/dL (8.6-10.3) L 12/07/17 06:07 Entire Visit Hgb 9.4 g/dL (11.5-15.4) L 12/07/17 06:07 Hct 28.8 % (35.3-44.9) L 12/07/17 06:07 PT 17.9 Seconds (9.4-12.1) H 12/07/17 06:07 Total Bilirubin 0.7 mg/dL (0.3-1.0) 12/07/17 06:07 AST 42 Units/L (13-39) H 12/07/17 06:07 ALT 30 Units/L (7-52) 12/07/17 06:07 Lipase 76 Units/L (11-82) 12/06/17 15:28 - ABG ABG results: PT/INR, D-dimer PT 17.9 Seconds (9.4-12.1) H 12/07/17 06:07 Consult Discharge Plan - Plan Referrals: Addison Jeffery [Primary Care Provider] - <Eleuterio Rosales - Last Filed: 12/08/17 12:27> Date of Encounter: 12/07/17 - Time Spent With Patient Total time spent is greater than 50% in coordination of care (as documented) at patient's floor/unit and/or counseling patient: GI History of Present Illness - Data of Consult Requesting Physician: Jamar Calvillo MD - Consult Narrative History of present illness: Ms. Mann is a 72 year old female - Constitutional Vitals: Temp Pulse Resp BP Pulse Ox 98.2 F 84 16 116/64 99 12/08/17 11:16 12/08/17 11:16 12/08/17 11:16 12/08/17 11:16 12/08/17 11:16 Results - Labs CBC & Chem 7: 12/08/17 07:46 12/08/17 07:46 Labs: Last Result Calcium 7.9 mg/dL (8.6-10.3) L 12/08/17 07:46 Entire Visit Hgb 9.8 g/dL (11.5-15.4) L 12/08/17 07:46 Hct 30.7 % (35.3-44.9) L 12/08/17 07:46 PT 17.9 Seconds (9.4-12.1) H 12/07/17 06:07 Total Bilirubin 0.7 mg/dL (0.3-1.0) 12/07/17 06:07 AST 42 Units/L (13-39) H 12/07/17 06:07 ALT 30 Units/L (7-52) 12/07/17 06:07 Lipase 76 Units/L (11-82) 12/06/17 15:28 - ABG ABG results: PT/INR, D-dimer PT 17.9 Seconds (9.4-12.1) H 12/07/17 06:07 - Impressions Impressions Liver Ultrasound 12/07/17 21:00 IMPRESSION: Cirrhosis with small volume perihepatic ascites. Status post cholecystectomy. D/ / Sonny Clay / Sonny Clay Interpreting Provider: Sonny Clay - Attending Attestation I examined this patient and my medical decision-making was reviewed with the Resident Physician. I agree with the documented findings, disposition and treatment plan as described except to the extent set forth below.
[2017-12-07 11:57] LABS: Adenovirus F 40/41 PCR Not detected (Not detect); Astrovirus PCR Not detected (Not detect); C.difficile Toxin A/B by PCR See reflex test (Not detect); Campylobacter by PCR Not detected (Not detect); Cryptosporidium by PCR Not detected (Not detect); Cyclospora cayetanensis PCR Not detected (Not detect); E. coli O157 by PCR Not detected (Not detect); Entamoeba histolytica PCR Not detected (Not detect); Enteroaggregative E.coli(EAEC) Not detected (Not detect); Enteropathogenic E.coli(EPEC) Not detected (Not detect); Enterotoxigenic E.coli (ETEC) Not detected (Not detect); Giardia lamblia PCR Not detected (Not detect); Norovirus GI/GII PCR Not detected (Not detect); Plesiomonas shigelloides PCR Not detected (Not detect); Rotavirus A PCR Not detected (Not detect); Salmonella PCR Not detected (Not detect); Sapovirus PCR Not detected (Not detect); Shig/EnteroinvasiveE coli EIEC Not detected (Not detect); Shigalike tox-prod E coli STEC Not detected (Not detect); Vibrio PCR Not detected (Not detect); Vibrio cholerae PCR Not detected (Not detect); Yersinia enterocolitica PCR Not detected (Not detect)
[2017-12-07] MEDS: *HR* HYDROcodone/Acet 5/325 mg TABLET PO PRN (22:19)
--- NOTE | 2017-12-08 07:33 | Internal Med Progress Note ---
Hospitalist Progress Note - Encounter Date of Encounter: 12/08/17 Time of Encounter: 07:30 - Exam Vitals: Temp Pulse Resp BP Pulse Ox 97.9 F 67 16 110/58 96 12/08/17 04:55 12/08/17 04:55 12/08/17 04:55 12/08/17 04:55 12/08/17 04:55 Exam: Gen - Awake, alert, oriented x 3, no acute distress HEENT - NCAT, PERRLA, EOMI, hearing grossly intact, oropharynx benign CV - RRR, normal S1 and S2, no M/R/G, no BLE edema Resp - Normal WOB, CTAB, no W/R/R GI - Soft, NT/ND, no masses, normal bowel sounds, Skin - Warm, dry, no rashes/lesions/ulcers Psych - Normal mood and affect, no depression or anxiety - Assessment and Plan (1) C. difficile colitis Current Visit: Yes Status: Acute Assessment and Plan: She has had diarrhea for the past week and CT shows colonic wall thickening concerning for colitis. Given her antibiotic exposure concern for C. difficile C diff tox came back positive. Will continue on po vancomycin GI plan for colonoscopy inpatient vs outpatient (2) RAMOS (nonalcoholic steatohepatitis) Current Visit: No Status: Chronic Assessment and Plan: With chronic thrombocytopenia. No evidence of acute changes. Continue to monitor. (3) Diabetes Current Visit: Yes Status: Chronic Assessment and Plan: Patient has history of diabetes and takes Lantus at home. Patient was hypoglycemic on arrival, likely due to patient continuing to take her insulin but not eating much. 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 GI following (7) DVT prophylaxis Current Visit: Yes Status: Acute Assessment and Plan: Lovenox 40mg SQ daily - Time Spent with Patient Total time spent is greater than 50% in coordination of care (as documented) at patient's floor/unit and/or counseling patient: Internal Medicine: Result - Labs CBC & Chem 7: 12/08/17 07:46 12/08/17 07:46 - ABG Interpretation ABG results: PT/INR, D-dimer PT 17.9 Seconds (9.4-12.1) H 12/07/17 06:07 - Impressions Impressions Liver Ultrasound 12/07/17 21:00 IMPRESSION: Cirrhosis with small volume perihepatic ascites. Status post cholecystectomy. D/ / Sonny Clay / Sonny Clay Interpreting Provider: Sonny Clay Consult Discharge Plan - Plan Referrals: Addison Jeffery [Primary Care Provider] - (3) Diabetes Qualifiers: Diabetes mellitus type: type 2 Diabetes mellitus snf insulin use: unspecified roasterman insulin use status Diabetes mellitus complication status : with unspecified complications Qualified Code(s): E11.8 - Type 2 diabetes mellitus with unspecified complications
[2017-12-08 08:09] LABS: Mean Corpuscular HGB Conc 31.9 g/dL (31.6-35.5)
[2017-12-08 08:11] LABS: Basophils % 0.3 %; Eosinophils # 0.1 K/mcL (0.0-0.6); Hematocrit 30.7 % (35.3-44.9); Hemoglobin 9.8 g/dL (11.5-15.4); Immature Granulocytes % 1.7 % (0-4); Immature Platelets 3.9 % (1.1-6.1); Lymphocytes # 0.8 K/mcL (0.6-4.6); Lymphocytes % 27.8 %; Mean Corpuscular Hemoglobin 31.6 pg (28.0-33.3); Monocytes # 0.2 K/mcL (0.0-1.3); Neutrophils # 1.8 K/mcL (1.6-8.9); Platelet Count 59 K/mcL (140-400); Red Cell Distribution Width 16.8 % (11.5-14.5); Segmented Neutrophils % 58.2 %
[2017-12-08 08:29] LABS: BUN/Creatinine Ratio 11 (6-26); Blood Urea Nitrogen 8 mg/dL (8-23); Calcium 7.9 mg/dL (8.6-10.3); Carbon Dioxide 22 mEq/L (23-29); Chloride 115 mEq/L (98-107); Glucose 147 mg/dL (70-105); Osmolality,Calculated 295 (280-300); Potassium 3.8 mEq/L (3.5-5.1); Sodium 142 mEq/L (136-145); eGFR For Non-African Americans > 60 (> 60)
[2017-12-08] MEDS: Furosemide 40 MG TABLET PO SCH (08:59)
[2017-12-08] MEDS: Vancomycin Oral Soln 125 MG/2.5 ML UDC PO SCH ×4 (09:00→21:19)
[2017-12-08] MEDS: *HR* LORazepam 0.5 MG TABLET PO SCH ×2 (09:00→21:21)
[2017-12-08] MEDS: *HR* HYDROcodone/Acet 5/325 mg TABLET PO PRN ×2 (09:10→21:21)
[2017-12-08] MEDS: Valsartan 80 MG TABLET PO SCH ×2 (09:10→21:19)
[2017-12-08] MEDS: Insulin LISPRO 300 UNITS/3 ML VIAL SQ SCH ×4 (09:11→21:34)
[2017-12-09 05:33] LABS: Basophils % 0.4 %; Hematocrit 28.7 % (35.3-44.9); Immature Granulocytes % 0.8 % (0-4); Red Cell Distribution Width 16.4 % (11.5-14.5)
[2017-12-09 05:35] LABS: Eosinophils # 0.1 K/mcL (0.0-0.6); Eosinophils % 3.9 %; Hemoglobin 9.1 g/dL (11.5-15.4); Lymphocytes % 39.5 %; Mean Corpuscular HGB Conc 31.7 g/dL (31.6-35.5); Mean Corpuscular Hemoglobin 31.3 pg (28.0-33.3); Mean Corpuscular Volume 98.6 fL (83.0-100.0); Monocytes # 0.2 K/mcL (0.0-1.3); Monocytes % 8.9 %; Neutrophils # 1.2 K/mcL (1.6-8.9); Red Blood Count 2.91 M/mcL (3.82-4.97); Segmented Neutrophils % 46.5 %
[2017-12-09 05:43] LABS: Platelet Count 61 K/mcL (140-400)
[2017-12-09 05:55] LABS: BUN/Creatinine Ratio 8 (6-26); Blood Urea Nitrogen 5 mg/dL (8-23); Calcium 7.5 mg/dL (8.6-10.3); Carbon Dioxide 27 mEq/L (23-29); Chloride 109 mEq/L (98-107); Glucose 111 mg/dL (70-105); Magnesium 1.4 mg/dL (1.6-2.6); Osmolality,Calculated 286 (280-300); Phosphorous 1.4 mg/dL (2.7-4.5); Potassium 3.4 mEq/L (3.5-5.1); Sodium 139 mEq/L (136-145); eGFR For Non-African Americans > 60 (> 60)
[2017-12-09] MEDS: *HR* HYDROcodone/Acet 5/325 mg TABLET PO PRN (06:20)
[2017-12-09] MEDS ORDERED: Potassium Phosphate 44 MEQ in 0.9 % Sodium Chloride 250 ML IVPB ONE (07:55)
[2017-12-09] MEDS: Insulin LISPRO 300 UNITS/3 ML VIAL SQ SCH ×4 (08:03→21:23)
[2017-12-09] MEDS: *HR* LORazepam 0.5 MG TABLET PO SCH ×2 (08:32→21:10)
[2017-12-09] MEDS: Valsartan 80 MG TABLET PO SCH ×2 (08:32→21:10)
[2017-12-09] MEDS: Furosemide 40 MG TABLET PO SCH (08:32)
[2017-12-09] MEDS: Vancomycin Oral Soln 125 MG/2.5 ML UDC PO SCH ×4 (08:33→21:12)
--- NOTE | 2017-12-09 08:37 | Internal Med Progress Note ---
Hospitalist Progress Note - Encounter Date of Encounter: 12/09/17 Time of Encounter: 08:00 - Exam Vitals: Temp Pulse Resp BP Pulse Ox 97.7 F 63 14 123/61 94 12/09/17 06:42 12/09/17 06:42 12/09/17 06:42 12/09/17 06:42 12/09/17 06:42 Exam: Gen - Awake, alert, oriented x 3, no acute distress HEENT - NCAT, PERRLA, EOMI, hearing grossly intact, oropharynx benign CV - RRR, normal S1 and S2, no M/R/G, no BLE edema Resp - Normal WOB, CTAB, no W/R/R GI - Soft, NT/ND, no masses, normal bowel sounds, Skin - Warm, dry, no rashes/lesions/ulcers Psych - Normal mood and affect, no depression or anxiety - Assessment and Plan (1) C. difficile colitis Current Visit: Yes Status: Acute Assessment and Plan: She has had diarrhea for the past week and CT shows colonic wall thickening concerning for colitis. Given her antibiotic exposure concern for C. difficile C diff tox came back positive. Will continue on po vancomycin. Diarrhea has been slowly resolving Tolerated clear liquids and will advance diet to cardiac today. plan for d/c in am if stable (2) RAMOS (nonalcoholic steatohepatitis) Current Visit: No Status: Chronic Assessment and Plan: With chronic thrombocytopenia. No evidence of acute changes. Continue to monitor. 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 GI following (7) DVT prophylaxis Current Visit: Yes Status: Acute Assessment and Plan: Lovenox 40mg SQ daily - Time Spent with Patient Total time spent is greater than 50% in coordination of care (as documented) at patient's floor/unit and/or counseling patient: Internal Medicine: Result - Labs CBC & Chem 7: 12/09/17 04:57 12/09/17 04:57 Labs: Short CBC 12/09/17 Range/Units 04:57 WBC 2.6 L (4.3-11.1) K/mcL Hgb 9.1 L (11.5-15.4) g/dL Hct 28.7 L (35.3-44.9) % Plt Count 61 L (140-400) K/mcL Neutrophils # 1.2 L (1.6-8.9) K/mcL BMP 12/09/17 04:57 Sodium 139 Potassium 3.4 L Chloride 109 H Carbon Dioxide 27 BUN 5 L Creatinine 0.64 Glucose 111 H Calcium 7.5 L - ABG Interpretation ABG results: PT/INR, D-dimer PT 17.9 Seconds (9.4-12.1) H 12/07/17 06:07 Consult Discharge Plan - Plan Referrals: Addison Jeffery [Primary Care Provider] - (3) Diabetes Qualifiers: Diabetes mellitus type: type 2 Diabetes mellitus prison insulin use: unspecified prison insulin use status Diabetes mellitus complication status : with unspecified complications Qualified Code(s): E11.8 - Type 2 diabetes mellitus with unspecified complications
[2017-12-10 03:35] LABS: Hemoglobin 9.4 g/dL (11.5-15.4); Mean Corpuscular Volume 98.3 fL (83.0-100.0)
[2017-12-10 03:37] LABS: Basophils % 0.3 %; Eosinophils # 0.1 K/mcL (0.0-0.6); Eosinophils % 3.9 %; Hematocrit 29.5 % (35.3-44.9); Immature Granulocytes % 0.6 % (0-4); Immature Platelets 3.5 % (1.1-6.1); Lymphocytes % 32.4 %; Mean Corpuscular HGB Conc 31.9 g/dL (31.6-35.5); Mean Corpuscular Hemoglobin 31.3 pg (28.0-33.3); Mean Platelet Volume 10.9 fL (9.4-12.4); Monocytes # 0.3 K/mcL (0.0-1.3); Monocytes % 9.4 %; Neutrophils # 1.7 K/mcL (1.6-8.9); Red Cell Distribution Width 16.3 % (11.5-14.5); Segmented Neutrophils % 53.4 %
[2017-12-10 03:44] LABS: Platelet Count 65 K/mcL (140-400)
[2017-12-10 03:54] LABS: BUN/Creatinine Ratio 8 (6-26); Blood Urea Nitrogen 6 mg/dL (8-23); Calcium 7.5 mg/dL (8.6-10.3); Carbon Dioxide 28 mEq/L (23-29); Chloride 109 mEq/L (98-107); Glucose 150 mg/dL (70-105); Magnesium 1.7 mg/dL (1.6-2.6); Osmolality,Calculated 286 (280-300); Phosphorous 1.4 mg/dL (2.7-4.5); Potassium 3.5 mEq/L (3.5-5.1); Sodium 138 mEq/L (136-145); eGFR For Non-African Americans > 60 (> 60)
--- NOTE | 2017-12-10 07:35 | Discharge Summary ---
Date of Encounter: 12/10/17 Time of Encounter: 07:30 - Discharge Diagnosis (1) C. difficile colitis Priority: Primary Status: Acute Assessment and Plan: 72 year old female with history of cirrhosis due to RAMOS, diabetes, recurrent UTIs on continual antibiotic therapy presents with diarrhea. Patient states that she has had diarrhea for the past week. She reports that it is changed in character from dark brown to green to yellow. She states that a couple days ago she felt like she had some blood that was just a one-time episode. She reports some mild diffuse abdominal pain. She denies nausea or vomiting. She reports that every time she eats she feels like things go right through her. She was assessed with colitis with CT showing colonic wall thickening concerning for colitis. She was initally started on po vancomycin and metronidazole and a stool panel was sent which came back positive for C diff. Metronidazole was discontinued ad patient was continued on po vancomycin with noticeable improvement in her diarrhea. She was discharged to complete a total of 10 day course of po vancomycin and will follow up with GI as an outpatient. 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 Mann is a 72 year old female - Time Spent with Patient Total time spent providing and/or coordinating discharge services: - Discharge Medications Prescriptions: Vancomycin Oral Soln [Firvanq] 125 mg PO QID 6 Days #24 [facility] [place] Home Medications: Alendronate Sodium 70 mg PO VAZQUEZ 10/04/17 [History] Carvedilol [Coreg] 6.25 mg PO BID 10/04/17 [History] Ferrous Sulfate 325 mg PO HS 10/04/17 [History] HYDROcodone/Acet 5/325 mg [[place] 5-325 mg] 1 tab PO BID 10/04/17 [History] Insulin Glargine [Lantus] 50 unit SQ BID 10/04/17 [History] LORazepam [Ativan] 0.5 mg PO BID 10/04/17 [History] Levothyroxine Sodium 112 mcg PO DAILY 10/04/17 [History] Pantoprazole Sodium 40 mg PO HS 10/04/17 [History] Potassium Chloride 10 meq PO DAILY #30 tab.er.prt 10/06/17 [Rx] Furosemide [Lasix] 40 mg PO DAILY 12/06/17 [History] Furosemide [Lasix] 40 mg PO QPM PRN 12/06/17 [History] Metformin HCl 1,000 mg PO BID 12/06/17 [History] Rosuvastatin Calcium 5 mg PO HS 12/06/17 [History] Valsartan 40 mg PO BID 12/06/17 [History] cephALEXin [Keflex] 250 mg PO HS 12/06/17 [History] Vancomycin Oral Soln [Firvanq] 125 mg PO QID 6 Days #24 [facility] 12/10/17 [Rx] Allergies/Adverse Reactions: 3 Allergy/AdvReac Type Severity Reaction Status Date / Time nitrofurantoin Allergy Rash Verified 12/06/17 20:00 [From Macrobid] Sulfa (Sulfonamide Allergy Rash Verified 12/06/17 20:00 Antibiotics) exenatide [From Byetta] AdvReac Vomiting Verified 12/06/17 20:00 liraglutide [From Victoza] AdvReac Vomiting Verified 12/06/17 20:00 Date of admission: 12/08/17 12:24 Primary care physician: Addison Jeffery - Constitutional Vitals: Temp Pulse Resp BP Pulse Ox 97.9 F 73 18 118/64 93 12/10/17 04:10 12/10/17 04:10 12/10/17 04:10 12/10/17 04:10 12/10/17 04:10 General appearance: Present: A&O X 3, no acute distress Exam: Gen - Awake, alert, oriented x 3, no acute distress HEENT - NCAT, PERRLA, EOMI, hearing grossly intact, oropharynx benign CV - RRR, normal S1 and S2, no M/R/G, no BLE edema Resp - Normal WOB, CTAB, no W/R/R GI - Soft, NT/ND, no masses, normal bowel sounds, Skin - Warm, dry, no rashes/lesions/ulcers Psych - Normal mood and affect, no depression or anxiety - Patient Status Disposition: Home, Self-Care Condition: Good - Discharge Instructions Follow Up With: Addison Jeffery [Primary Care Provider] - 12/16/17 10:00 am
[2017-12-10 07:53] VITALS: BP 118/56
[2017-12-10] MEDS ORDERED: Potassium Phosphate 44 MEQ in 0.9 % Sodium Chloride 250 ML IVPB ONE (08:03)
[2017-12-10] MEDS: Insulin LISPRO 300 UNITS/3 ML VIAL SQ SCH ×2 (09:52→13:47)
[2017-12-10] MEDS: Furosemide 40 MG TABLET PO SCH (10:02)
[2017-12-10] MEDS: *HR* LORazepam 0.5 MG TABLET PO SCH (10:02)
[2017-12-10] MEDS: Valsartan 80 MG TABLET PO SCH (10:02)
[2017-12-10] MEDS: Vancomycin Oral Soln 125 MG/2.5 ML UDC PO SCH ×2 (10:03→14:03)
[2017-12-10] MEDS: *HR* HYDROcodone/Acet 5/325 mg TABLET PO PRN (10:05)
== END 2017-12-10 15:39 | disposition home or self-care (01) | DRG 372 ==
LOC: 3ANU 15:13 → EMEROOARM 15:13 → 3ANU 20:40
PROVIDERS: ADMIT Pediatrics; ATTEND Pediatrics

== ENCOUNTER 2018-07-25 14:29 | Inpatient (IN) ==
[2018-07-25] MEDS ORDERED: 0.9 % Sodium Chloride 1,000 ML IVC ONE (14:52)
--- NOTE | 2018-07-25 14:55 | Emergency Department Note ---
Disposition Clinical Impression: Hyperkalemia, BHANU (acute kidney injury), Hyperglycemia Disposition: Admitted As Inpatient Condition: Good Referrals: Addison Jeffery [Primary Care Provider] - Forms: ED Satisfaction Letter Time of Disposition: 17:01 General Adult HPI - General Chief complaint: ED Recheck/Abnormal Lab/Rx Stated complaint: abnormal labs Time Seen by Provider: 07/25/18 14:41 Source: patient, family, EMS Mode of arrival: EMS Limitations: no limitations Nursing Notes Reviewed: Yes Vital Signs Reviewed: Yes - History of Present Illness HPI Narrative: Unable to obtain due to patient's altered mental status. Per family, patient was told to come in due to some abnormal routine labs ordered by the cancer center who monitors her for chronic anemia and iron deficiency. Her review of the medical record, patient noted to have acute kidney injury with creatinine of 2 and potassium of 6. Patient is noted to be on Lasix and potassium supplementation and has not been eating or drinking regularly recently. Pain Scale: 0 - Related Data Home Medications Medication Instructions Recorded Confirmed HYDROcodone/Acet 5/325 mg [[place] 1 tab PO Q6H PRN 10/04/17 07/25/18 5-325 mg] Insulin Glargine [Lantus] 40 unit SQ HS 10/04/17 07/25/18 Levothyroxine Sodium 112 mcg PO DAILY 10/04/17 07/25/18 Pantoprazole Sodium 40 mg PO DAILY 10/04/17 07/25/18 Furosemide [Lasix] 40 mg PO BID 12/06/17 07/25/18 Metformin HCl 500 mg PO BIDWM 12/06/17 07/25/18 Rosuvastatin Calcium 5 mg PO DAILY 12/06/17 07/25/18 Valsartan 20 mg PO BID 12/06/17 07/25/18 FLUoxetine HCl [PROzac] 20 mg PO DAILY 02/07/18 07/25/18 Alendronate Sodium 70 mg PO QWEEK 07/25/18 07/25/18 Calcium Carbonate/Vitamin D3 1 tab PO DAILY 07/25/18 07/25/18 [Oyster [place] Calcium-Vit D Tab] Carvedilol 3.125 mg PO BID 07/25/18 07/25/18 LORazepam [Ativan] 1 mg PO BID PRN 07/25/18 07/25/18 Multivitamin [One Daily Essential] 1 tab PO DAILY 07/25/18 07/25/18 Spironolactone 50 mg PO BID 07/25/18 07/25/18 Zinc Gluconate 100 mg PO TID 07/25/18 07/25/18 cephALEXin [Keflex] 250 mg PO DAILY 07/25/18 07/25/18 Previous Rx's Medication Instructions Recorded Potassium Chloride 10 meq PO DAILY #30 tab.er.prt 10/06/17 Allergies Allergy/AdvReac Type Severity Reaction Status Date / Time nitrofurantoin Allergy Rash Verified 05/18/18 15:20 [From Macrobid] Sulfa (Sulfonamide Allergy Rash Verified 05/18/18 15:20 Antibiotics) exenatide [From Byetta] AdvReac Vomiting Verified 05/18/18 15:20 liraglutide [From Victoza] AdvReac Vomiting Verified 05/18/18 15:20 Limitations: ROS unobtainable due to patients medical condition Past Medical History - Past Medical History Source: old records reviewed Medical history: Reports: arthritis, asthma, cancer, cirrhosis, CHF, diabetes, GERD, hypertension, kidney stones, thyroid disease Surgical history: Reports: cataract, cholecystectomy, hysterectomy Psychiatric history: Reports: anxiety, depression, panic disorder - Social History Smoking Status: Never smoker Smokeless Tobacco Status: No Alcohol use: Reports: none Drug use: Reports: none Physical Exam - General Limitations: no limitations General appearance: alert, in no apparent distress - Head Head exam: atraumatic, normocephalic, normal inspection - Eye Eye exam: Present: normal appearance, PERRL, EOMI - ENT ENT exam: normal exam, normal oropharynx, mucous membranes moist - Neck Neck exam: Present: normal inspection, full ROM, trachea midline - Chest Chest inspection: Present: normal inspection, symmetric chest wall rise - Respiratory Respiratory exam: Present: normal lung sounds bilaterally - Cardiovascular Cardiovascular exam: Present: regular rate, normal rhythm, normal heart sounds - Abdominal Exam Abdominal exam: Present: soft, Non-Tender. Absent: tenderness, distention, guarding, rebound, rigidity - Extremities Exam Extremities exam: Present: full ROM. Absent: tenderness - Back Exam Back exam: Present: normal inspection, full ROM - Neurological Exam Neurological exam: Present: alert. Absent: motor sensory deficit - Psychiatric Psychiatric exam: Present: normal affect, normal mood - Skin Skin exam: Present: warm, dry Course Course Narrative: EKG interpreted by me shows normal sinus rhythm at 80 with normal axis and left bundle branch block with QRS of 140. Nonspecific associated ST changes without any ischemic ST elevation or depression. Abnormal EKG. Patient with elevated potassium is 6.3 and creatinine of nearly 2 with baseline normal renal function. She has elevated cholesterol greater than 400 without DKA. Patient was given 1 L of normal saline and insulin in the emergency department. Patient admitted for further evaluation and management. Vital Signs Temperature 97.6 F 07/25/18 14:38 Pulse Rate 87 07/25/18 14:38 Respiratory Rate 18 07/25/18 14:38 Blood Pressure 124/52 07/25/18 14:38 O2 Sat by Pulse Oximetry 94 07/25/18 14:38 Temperature 97.6 F 07/25/18 14:38 Pulse Rate 78 07/25/18 17:08 Respiratory Rate 18 07/25/18 17:08 Blood Pressure 106/48 07/25/18 17:08 O2 Sat by Pulse Oximetry 94 07/25/18 14:38 Oxygen Delivery Oxygen Delivery Room Air Medical Decision Making - Lab Data Result diagrams: 07/25/18 15:00 07/25/18 15:00 Lab Results 07/25/18 07/25/18 07/25/18 Range/Units 15:00 15:00 15:00 WBC 3.9 L (4.3-11.1) K/mcL RBC 3.48 L (3.82-4.97) M/mcL Hgb 11.4 L (11.5-15.4) g/dL Hct 33.2 L (35.3-44.9) % MCV 95.4 (83.0-100.0) fL MCH 32.8 (28.0-33.3) pg MCHC 34.3 (31.6-35.5) g/dL RDW 13.3 (11.5-14.5) % Plt Count 49 L (140-400) K/mcL MPV 12.9 H (9.4-12.4) fL Immature Gran % 0.5 (0-4) % Seg Neutrophils % 60.8 % Lymphocytes % 23.4 % Monocytes % 10.7 % Eosinophils % 4.1 % Basophils % 0.5 % Neutrophils # 2.4 (1.6-8.9) K/mcL Lymphocytes # 0.9 (0.6-4.6) K/mcL Monocytes # 0.4 (0.0-1.3) K/mcL Eosinophils # 0.2 (0.0-0.6) K/mcL Basophils # 0.0 (0.0-0.2) K/mcL Immature Plt Fraction 4.9 (1.1-6.1) % PT 14.3 H (9.4-12.1) Seconds INR 1.3 Sodium 127 L (136-145) mEq/L Potassium 6.3 H (3.5-5.1) mEq/L Chloride 97 L (98-107) mEq/L Carbon Dioxide 26 (23-29) mEq/L BUN 58 H (8-23) mg/dL Creatinine 1.89 H (0.60-1.20) mg/dL Est GFR ( Amer) 32 L (> 60) Est GFR (Non-Af Amer) 26 L (> 60) BUN/Creatinine Ratio 31 H (6-26) Glucose 437 H (70-105) mg/dL Calculated Osmolality 299 (280-300) Calcium 12.1 H (8.6-10.3) mg/dL Total Bilirubin 0.9 (0.3-1.0) mg/dL Direct Bilirubin 0.3 H (0.0-0.2) mg/dL Indirect Bilirubin 0.6 (0.0-1.2) mg/dL AST 63 H (13-39) Units/L ALT 47 (7-52) Units/L Alkaline Phosphatase 148 H (34-104) Units/L Ammonia (16-53) mcmol/L Creatine Kinase 41 (30-223) Units/L Serum Total Protein 6.0 L (6.4-8.9) g/dL Albumin 3.1 L (3.5-5.7) g/dL Globulin 2.9 (2.4-3.5) g/dL Albumin/Globulin Ratio 1.1 (1.1-2.2) Lipase 119 H (11-82) Units/L Urine Color (Yellow) Urine Clarity (Clear) Urine pH (5.0-8.0) pH Units Ur Specific [place] (1.010-1.025) Urine Protein (Neg-Trace) mg/dL Urine Glucose (UA) (Normal) mg/dL Urine Ketones (Negative) mg/dL Urine Blood (Negative) Urine Nitrite (Negative) Urine Bilirubin (Negative) Urine Urobilinogen (Normal) mg/dL Ur Leukocyte Esterase (Negative) Urine Microscopic RBC (0-3) per hpf Urine Microscopic WBC (0-3) per hpf Ur Squamous Epith Cells (None-Few) per lpf Urine Bacteria (None-Few) per hpf Hyaline Casts (None-Few) per lpf Ur Culture Indicated? (NO) 07/25/18 07/25/18 Range/Units 15:00 16:34 WBC (4.3-11.1) K/mcL RBC (3.82-4.97) M/mcL Hgb (11.5-15.4) g/dL Hct (35.3-44.9) % MCV (83.0-100.0) fL MCH (28.0-33.3) pg MCHC (31.6-35.5) g/dL RDW (11.5-14.5) % Plt Count (140-400) K/mcL MPV (9.4-12.4) fL Immature Gran % (0-4) % Seg Neutrophils % % Lymphocytes % % Monocytes % % Eosinophils % % Basophils % % Neutrophils # (1.6-8.9) K/mcL Lymphocytes # (0.6-4.6) K/mcL Monocytes # (0.0-1.3) K/mcL Eosinophils # (0.0-0.6) K/mcL Basophils # (0.0-0.2) K/mcL Immature Plt Fraction (1.1-6.1) % PT (9.4-12.1) Seconds INR Sodium (136-145) mEq/L Potassium (3.5-5.1) mEq/L Chloride (98-107) mEq/L Carbon Dioxide (23-29) mEq/L BUN (8-23) mg/dL Creatinine (0.60-1.20) mg/dL Est GFR ( Amer) (> 60) Est GFR (Non-Af Amer) (> 60) BUN/Creatinine Ratio (6-26) Glucose (70-105) mg/dL Calculated Osmolality (280-300) Calcium (8.6-10.3) mg/dL Total Bilirubin (0.3-1.0) mg/dL Direct Bilirubin (0.0-0.2) mg/dL Indirect Bilirubin (0.0-1.2) mg/dL AST (13-39) Units/L ALT (7-52) Units/L Alkaline Phosphatase (34-104) Units/L Ammonia 75 H (16-53) mcmol/L Creatine Kinase (30-223) Units/L Serum Total Protein (6.4-8.9) g/dL Albumin (3.5-5.7) g/dL Globulin (2.4-3.5) g/dL Albumin/Globulin Ratio (1.1-2.2) Lipase (11-82) Units/L Urine Color Yellow (Yellow) Urine Clarity Clear (Clear) Urine pH 6.5 (5.0-8.0) pH Units Ur Specific [place] 1.018 (1.010-1.025) Urine Protein Negative (Neg-Trace) mg/dL Urine Glucose (UA) >=1000 H (Normal) mg/dL Urine Ketones Negative (Negative) mg/dL Urine Blood Negative (Negative) Urine Nitrite Negative (Negative) Urine Bilirubin Negative (Negative) Urine Urobilinogen Normal (Normal) mg/dL Ur Leukocyte Esterase Trace H (Negative) Urine Microscopic RBC 0-3 (0-3) per hpf Urine Microscopic WBC 0-3 (0-3) per hpf Ur Squamous Epith Cells Many H (None-Few) per lpf Urine Bacteria None Seen (None-Few) per hpf Hyaline Casts None Seen (None-Few) per lpf Ur Culture Indicated? YES A (NO)
[2018-07-25 15:21] LABS: Red Cell Distribution Width 13.3 % (11.5-14.5)
[2018-07-25 15:22] LABS: Basophils % 0.5 %; Eosinophils # 0.2 K/mcL (0.0-0.6); Eosinophils % 4.1 %; Hematocrit 33.2 % (35.3-44.9); Hemoglobin 11.4 g/dL (11.5-15.4); Immature Granulocytes % 0.5 % (0-4); Immature Platelets 4.9 % (1.1-6.1); Lymphocytes # 0.9 K/mcL (0.6-4.6); Lymphocytes % 23.4 %; Mean Corpuscular HGB Conc 34.3 g/dL (31.6-35.5); Mean Corpuscular Hemoglobin 32.8 pg (28.0-33.3); Mean Corpuscular Volume 95.4 fL (83.0-100.0); Mean Platelet Volume 12.9 fL (9.4-12.4); Monocytes # 0.4 K/mcL (0.0-1.3); Monocytes % 10.7 %; Neutrophils # 2.4 K/mcL (1.6-8.9); Red Blood Count 3.48 M/mcL (3.82-4.97); Segmented Neutrophils % 60.8 %
[2018-07-25 15:24] LABS: Platelet Count 49 K/mcL (140-400)
[2018-07-25 15:26] LABS: INR 1.3; Prothrombin Time 14.3 Seconds (9.4-12.1)
[2018-07-25 15:40] LABS: Albumin 3.1 g/dL (3.5-5.7); Albumin/Globulin Ratio 1.1 (1.1-2.2); Bilirubin,Direct 0.3 mg/dL (0.0-0.2); Bilirubin,Indirect 0.6 mg/dL (0.0-1.2); Bilirubin,Total 0.9 mg/dL (0.3-1.0); Calcium 12.1 mg/dL (8.6-10.3); Globulin 2.9 g/dL (2.4-3.5); Potassium 6.3 mEq/L (3.5-5.1)
[2018-07-25] MEDS ORDERED: Insulin Regular, Human 100 UNIT/ML SQ ONE (15:52)
[2018-07-25 16:51] LABS: Bilirubin,Urine Negative (Negative); Blood,Urine Negative (Negative); Clarity,Urine Clear (Clear); Color,Urine Yellow (Yellow); Glucose,Urine (UA) >=1000 mg/dL (Normal); Ketones,Urine Negative (Negative); Leukocyte Esterase,Urine Trace (Negative); Nitrite,Urine Negative (Negative); PH,Urine 6.5 pH Units (5.0-8.0); Protein,Urine Negative (Neg-Trace); Specific Gravity,Urine 1.018 (1.010-1.025); Urobilinogen,Urine Normal (Normal)
[2018-07-25 16:53] LABS: Bacteria,Urine None Seen per hpf (None-Few); Hyaline Casts,Urine None Seen per lpf (None-Few); RBC,Urine 0-3 per hpf (0-3); Squamous Epithelial Cell,Urine Many per lpf (None-Few); WBC,Urine 0-3 per hpf (0-3)
[2018-07-25] MEDS ORDERED: Insulin Human Regular 10 UNIT in 0.9 % Sodium Chloride 10 ML IV ONE (17:28)
[2018-07-25] MEDS ORDERED: Ondansetron 4 MG/2 ML VIAL IVP PRN (17:45)
--- NOTE | 2018-07-25 17:50 | Internal Med History&Physical ---
Date of Encounter: 07/25/18 Time of Encounter: 17:18 Internal Medicine - H&P: HPI Chief complaint: Abnormal labs Admitted From: Emergency Dept History of present illness: Tonya Mann is a 72 F w hx RAMOS cirrhosis c/b portal HTN, HTN, HFpEF, DM2, recurrent UTIs, C diff colitis, who p/w confusion and abnormal labs. Pt is poor historian due to some confusion. Her sister is present and provides much of the history. With prompting, pt does state that she had blood checked this morning and then was told to come to ED. Sister adds that patient has been seemingly groggy/confused for the last several days, and her appetite and intake have decr eased over the last month. She says that the PCP increased both of the patient's water pills in late June. Says that overall since increasing water pills her leg swelling has improved quite a bit. She denies that pt has ever been confused or had hepatic encephalopathy before to her knowledge. Due to her confusion, outpatient labs ordered which revealed elevated Cr and K, and thus patient was directed to ED. Pt denies fever, abd pain, N/V, diarrhea, CP, SOB. She does incidentally note palpitations. In the ED, pt vitals unremarkable. Labs notable for Cr 1.9, Na 127, K 6.3, Cl 97, BUN 58, glucose 440, Ca 12.1, AST 63, alk phos 150, ammonia 75, lipase 120. UA unremarkable other than heavy glucosuria. Past medical, surgical, social, and family histories reviewed and updated as below. Past Med Surg Social Fam HX - Past Medical History Medical history: arthritis, asthma, cancer, cirrhosis, CHF, diabetes, GERD, hypertension, kidney stones, thyroid disease Additional medical history: Uterine cancer Psychiatric history: anxiety, depression, panic disorder - Past Surgical History Surgical History: cataract, cholecystectomy, hysterectomy Additional surgical history: bowel surgery - egd - colonoscopy. back sugery - Social History Smoking Status: Never smoker Smokeless Tobacco Status: No Alcohol use: none Drug use: none - Family History Mother Family Member Ethnicity: Non- Living Status: Hx Family Endocrine Disorder: Yes (DM) Father Family Member Ethnicity: Non- Living Status: Hx Family Cardiac Disorders: Yes (CAD, CA) Hx Family Cancer: Yes (Lung) Brother Family Member Ethnicity: Non- Living Status: Hx Family Cancer: Yes (Lung/Kidney) Hx Family Endocrine Disorder: Yes (DM) Sister Family Member Ethnicity: Non- Living Status: Still Living Hx Family Endocrine Disorder: Yes (DM) Internal Medicine - H&P: Meds HYDROcodone/Acet 5/325 mg [[place] 5-325 mg] 1 tab PO Q6H PRN 10/04/17 [History] Insulin Glargine [Lantus] 40 unit SQ HS 10/04/17 [History] Levothyroxine Sodium 112 mcg PO DAILY 10/04/17 [History] Pantoprazole Sodium 40 mg PO DAILY 10/04/17 [History] Potassium Chloride 10 meq PO DAILY #30 tab.er.prt 10/06/17 [Rx] Furosemide [Lasix] 40 mg PO BID 12/06/17 [History] Metformin HCl 500 mg PO BIDWM 12/06/17 [History] Rosuvastatin Calcium 5 mg PO DAILY 12/06/17 [History] Valsartan 20 mg PO BID 12/06/17 [History] FLUoxetine HCl [PROzac] 20 mg PO DAILY 02/07/18 [History] Alendronate Sodium 70 mg PO QWEEK 07/25/18 [History] Calcium Carbonate/Vitamin D3 [Oyster [place] Calcium-Vit D Tab] 1 tab PO DAILY 07/25/18 [History] Carvedilol 3.125 mg PO BID 07/25/18 [History] LORazepam [Ativan] 1 mg PO BID PRN 07/25/18 [History] Multivitamin [One Daily Essential] 1 tab PO DAILY 07/25/18 [History] Spironolactone 50 mg PO BID 07/25/18 [History] Zinc Gluconate 100 mg PO TID 07/25/18 [History] cephALEXin [Keflex] 250 mg PO DAILY 07/25/18 [History] Allergy/AdvReac Type Severity Reaction Status Date / Time nitrofurantoin Allergy Rash Verified 05/18/18 15:20 [From Macrobid] Sulfa (Sulfonamide Allergy Rash Verified 05/18/18 15:20 Antibiotics) exenatide [From [place]] AdvReac Vomiting Verified 05/18/18 15:20 liraglutide [From Victoza] AdvReac Vomiting Verified 05/18/18 15:20 All Systems PM: A 10-system review of systems was performed and is negative for pertinent findings except as documented above in the HPI. - Constitutional Vitals: Temp Pulse Resp BP Pulse Ox 97.6 F 78 18 106/48 94 07/25/18 14:38 07/25/18 17:08 07/25/18 17:08 07/25/18 17:08 07/25/18 14:38 Exam: General: NAD, poor eye contact, chronically ill appearing Head: Atraumatic, normocephalic. Face symmetric Eyes: EOMI, sclerae anicteric ENT: Mucous membranes dry. Normal oral mucosa and dentition. Trachea midline. Thoracic: No visible chest wall deformities. Normal breath sounds b/l, no wheezing or crackles Cardio: Normal S1 and S2, regular rhythm, tachycardic Abdomen: Soft, nontender, mildly distended Extremities: Warm, well perfused. DP pulses 2+ b/l. No clubbing, cyanosis. Does have pitting edema to knees b/l Skin: Intact. No rashes, bruises, or ulcers Neuro: Awake, oriented to person and place and time but not situation. Poor mem ory and concentration. Speech fluent. CN II-XII grossly intact. Strength 5/5 in b/l UE and LE. +mild/fine asterixis Internal Med - H&P Results - Labs CBC & Chem 7: 07/25/18 15:00 07/25/18 15:00 Labs: Short CBC 07/25/18 Range/Units 15:00 WBC 3.9 L (4.3-11.1) K/mcL Hgb 11.4 L (11.5-15.4) g/dL Hct 33.2 L (35.3-44.9) % Plt Count 49 L (140-400) K/mcL Neutrophils # 2.4 (1.6-8.9) K/mcL BMP 07/25/18 15:00 Sodium 127 L Potassium 6.3 H Chloride 97 L Carbon Dioxide 26 BUN 58 H Creatinine 1.89 H Glucose 437 H Calcium 12.1 H Liver Function 07/25/18 Range/Units 15:00 Total Bilirubin 0.9 (0.3-1.0) mg/dL Direct Bilirubin 0.3 H (0.0-0.2) mg/dL AST 63 H (13-39) Units/L ALT 47 (7-52) Units/L Alkaline Phosphatase 148 H (34-104) Units/L Albumin 3.1 L (3.5-5.7) g/dL Urine 07/25/18 Range/Units 16:34 Urine Color Yellow (Yellow) Urine Clarity Clear (Clear) Urine pH 6.5 (5.0-8.0) pH Units Ur Specific [place] 1.018 (1.010-1.025) Urine Protein Negative (Neg-Trace) mg/dL Urine Glucose (UA) >=1000 H (Normal) mg/dL - Summary of Assessment and Plan Summary of Assessment and Plan: Tonya Mann is a 72 F w hx RAMOS cirrhosis c/b portal HTN, HTN, HFpEF, DM2, recurrent UTIs, C diff colitis, who p/w confusion, asterixis, elevated Cr, and several other abnormalities, concerning for dehydration, hyperglycemia, BHANU, hyperkalemia, and hepatic encephalopathy. Acute hepatic encephalopathy: disoriented to situation, +mild asterixis on exam, ammonia 75 - start lactulose tid targeting 3-4 loose BMs daily Hyperkalemia: 2/2 BHANU and hyperglycemia, in ED was given NS 1L, kayexalate, and regular insulin 10u sq - regular insulin 10u IV x1 - recheck K BHANU: hx suggests pre-renal, given NS 1L bolus in ED - holding ARB and lasix and potassium and fei - check U sodium, creatinine, and urea to calculate FENa and/or FEUrea Hypovolemic hyponatremia: some component of pseudohyponatremia from hyperglycemia but also has hypochloremia and is volume down - fluids as above and monitor Hypercalcemia: 2/2 hypovolemia, fluids as above and recheck DM2 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, with hyperglycemia: - insulin as above for hyperK - home lantus 40 qhs - SSI - holding metformin due to BHANU - will check frequent accuchecks (q1h x3) given use of IV insulin Decompensated RAMOS Cirrhosis: c/b hypersplenism, thrombocytopenia, varices - daily MELD labs (bmp, LFT, inr) - HE: start lactulose as above - EV: has varices, continue home PPI - Diuretics: holding home lasix 40 bid and fei 50 bid CAD/HLD: home statin HTN: home coreg 3.125 bid HFpEF: does have pedal edema but not in acute exacerbation, holding diuretics as above Hypothyroidism: home synthroid Recurrent UTIs: home keflex 250 bid Mood disorder: prozac 20 daily, holding home ativan Obesity: BMI 34 PPx: sqh FEN: renal ADA, no MIVF Lines: PIV Consults: Code: Full Dispo: patient requires inpatient eval and management at this time. Anticipate 3-4 days. Will be homegoing
[2018-07-25] MEDS ORDERED: Dextrose Gel 15 GM/37.5 ML TUBE PO PRN ×2 (17:52)
[2018-07-25] MEDS ORDERED: *HR* Dextrose 50 % in Water (Syg) 50 ML SYRINGE IVP PRN (17:52)
[2018-07-25] MEDS ORDERED: D5% in Water 1,000 ML IVC PRN (17:52)
[2018-07-25 20:05] LABS: Calcium 11.4 mg/dL (8.6-10.3); Potassium 5.7 mEq/L (3.5-5.1)
[2018-07-25 21:03] LABS: Sodium, Urine 42.1 mEq/L
[2018-07-25] MEDS: Lactulose Oral Soln 20 GM/30 ML UDC PO SCH (21:56)
[2018-07-25] MEDS: Insulin DETEMIR 100 UNIT/ML X5UNITS SQ SCH (23:16)
[2018-07-25] MEDS: *HR* Heparin 5,000 UNIT/ML VIAL SQ SCH (23:19)
[2018-07-26] MEDS: Acetaminophen 325 MG TABLET PO PRN ×2 (04:45→22:39)
[2018-07-26] MEDS: Insulin LISPRO 300 UNITS/3 ML VIAL SQ SCH ×3 (07:46→16:18)
[2018-07-26 07:52] LABS: Hematocrit 34.1 % (35.3-44.9)
[2018-07-26 07:53] LABS: Hemoglobin 11.8 g/dL (11.5-15.4); Mean Corpuscular HGB Conc 34.6 g/dL (31.6-35.5); Mean Corpuscular Hemoglobin 32.8 pg (28.0-33.3); Mean Corpuscular Volume 94.7 fL (83.0-100.0); Mean Platelet Volume 12.3 fL (9.4-12.4); Red Blood Count 3.6 M/mcL (3.82-4.97); Red Cell Distribution Width 13.6 % (11.5-14.5)
[2018-07-26 07:58] LABS: INR 1.3; Prothrombin Time 14.2 Seconds (9.4-12.1)
[2018-07-26 08:19] LABS: Albumin 3.2 g/dL (3.5-5.7); Albumin/Globulin Ratio 1.1 (1.1-2.2); Bilirubin,Total 1.3 mg/dL (0.3-1.0); Calcium 11.7 mg/dL (8.6-10.3); Magnesium 1.3 mg/dL (1.6-2.6); Potassium 5.1 mEq/L (3.5-5.1); Total Protein 6.2 g/dL (6.4-8.9)
--- NOTE | 2018-07-26 08:41 | Internal Med Progress Note ---
Hospitalist Progress Note - Encounter Date of Encounter: 07/26/18 Time of Encounter: 11:00 - Subjective Interval History: Patient is a 72-year-old female with past medical history significant for cirrhosis (RAMOS) with portal hypertension, HTN, HFpEF, DM2 and recurrent UTIs who was sent by primary care provider due to abnormal labs. Patient was found to have some confusion and labs revealed elevated ammonia levels in addition to hyperkalemia and BHANU. - Exam Vitals: Temp Pulse Resp BP Pulse Ox 98.6 F 90 16 125/76 95 07/26/18 07:12 07/26/18 07:12 07/26/18 07:12 07/26/18 07:12 07/26/18 07:12 Exam: Gen.: Nonacute distress, alert and oriented 3 ENT: Mucosal membranes moist Respiratory: Lungs are clear to auscultation bilaterally without any wheezing rhonchi or rales Cardiovascular: Normal S1 and S2 regular rate rhythm no murmurs rubs or gallops Abdomen: Soft, nontender and nondistended with positive bowel sounds Extremities: No lower extremity edema Skin: Normal color - Assessment and Plan (1) Hyperkalemia Current Visit: Yes Status: Acute Assessment and Plan: Resolved after given insulin and Kayexalate on admission Will continue to monitor (2) BHANU (acute kidney injury) Current Visit: Yes Status: Acute Assessment and Plan: Renal function improving this morning on IV fluids Suspect secondary to home dose of Lasix that was increase her primary care provider Continue current management and monitor (3) 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 Current Visit: No Status: Acute Assessment and Plan: Patient presented with elevated ammonia levels 75 and was started on lactulose on admission Will continue to monitor Lasix and spironolactone currently being held due to BHANU above (4) Esophageal varices determined by endoscopy Current Visit: No Status: Chronic Assessment and Plan: We will continue to monitor (5) Recurrent UTI Current Visit: No Status: Acute Assessment and Plan: Continue home daily dose of prophylaxis with Keflex (6) Chronic diastolic (congestive) heart failure Current Visit: No Status: Acute Assessment and Plan: Home dose of Lasix currently being held due to BHANU above (7) GERD (gastroesophageal reflux disease) Current Visit: No Status: Chronic Assessment and Plan: Continue PPI (8) HLD (hyperlipidemia) Current Visit: No Status: Chronic Assessment and Plan: Attending statin (9) HTN (hypertension) Current Visit: No Status: Chronic Assessment and Plan: Valsartan currently being held (10) Diabetes Current Visit: No Status: Chronic Assessment and Plan: Coverage with sliding-scale insulin and basal insulin (11) Thyroid disease Current Visit: No Status: Chronic Assessment and Plan: Continue home dose of levothyroxine DVT Prophylaxis: Heparin subcutaneous - Time Spent with Patient Total time spent is greater than 50% in coordination of care (as documented) at patient's floor/unit and/or counseling patient: Internal Medicine: Result - Labs CBC & Chem 7: 07/26/18 07:15 07/26/18 07:15 Labs: Short CBC 07/25/18 07/26/18 Range/Units 15:00 07:15 WBC 3.9 L 4.8 (4.3-11.1) K/mcL Hgb 11.4 L 11.8 (11.5-15.4) g/dL Hct 33.2 L 34.1 L (35.3-44.9) % Plt Count 49 L 52 L (140-400) K/mcL Neutrophils # 2.4 (1.6-8.9) K/mcL BMP 07/25/18 07/25/18 07/26/18 15:00 18:21 07:15 Sodium 127 L 131 L 136 Potassium 6.3 H 5.7 H 5.1 Chloride 97 L 102 106 Carbon Dioxide 26 25 24 BUN 58 H 53 H 39 H Creatinine 1.89 H 1.60 H 1.24 H Glucose 437 H 352 H 140 H Calcium 12.1 H 11.4 H 11.7 H Liver Function 07/25/18 07/26/18 Range/Units 15:00 07:15 Total Bilirubin 0.9 1.3 H (0.3-1.0) mg/dL Direct Bilirubin 0.3 H (0.0-0.2) mg/dL AST 63 H 69 H (13-39) Units/L ALT 47 53 H (7-52) Units/L Alkaline Phosphatase 148 H 133 H (34-104) Units/L Albumin 3.1 L 3.2 L (3.5-5.7) g/dL Urine 07/25/18 Range/Units 16:34 Urine Color Yellow (Yellow) Urine Clarity Clear (Clear) Urine pH 6.5 (5.0-8.0) pH Units Ur Specific [place] 1.018 (1.010-1.025) Urine Protein Negative (Neg-Trace) mg/dL Urine Glucose (UA) >=1000 H (Normal) mg/dL - ABG Interpretation ABG results: PT/INR, D-dimer PT 14.2 Seconds (9.4-12.1) H 07/26/18 07:15 Consult Discharge Plan - Plan Referrals: Addison Jeffery [Primary Care Provider] - (7) GERD (gastroesophageal reflux disease) Qualifiers: Esophagitis presence: esophagitis presence not specified Qualified Code(s): K21.9 - Gastro-esophageal reflux disease without esophagitis (8) HLD (hyperlipidemia) Qualifiers: Hyperlipidemia type: pure hypercholesterolemia Qualified Code(s): E78.00 - Pure hypercholesterolemia, unspecified; E78.0 - Pure hypercholesterolemia (9) HTN (hypertension) Qualifiers: Hypertension type: essential hypertension Qualified Code(s): I10 - Essential (primary) hypertension (10) Diabetes Qualifiers: Diabetes mellitus type: type 2 Diabetes mellitus [facility] insulin use: unspecified 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
[2018-07-26] MEDS: FLUoxetine 20 MG CAPSULE PO SCH (09:30)
[2018-07-26] MEDS: *HR* Heparin 5,000 UNIT/ML VIAL SQ SCH ×3 (09:30→21:05)
[2018-07-26] MEDS: cephALEXin 250 MG CAPSULE PO SCH (09:30)
[2018-07-26] MEDS: Lactulose Oral Soln 20 GM/30 ML UDC PO SCH ×3 (09:31→21:04)
[2018-07-26] MEDS: Insulin DETEMIR 100 UNIT/ML X5UNITS SQ SCH (21:05)
[2018-07-27] MEDS: Insulin LISPRO 300 UNITS/3 ML VIAL SQ SCH ×3 (07:51→16:14)
[2018-07-27] MEDS: FLUoxetine 20 MG CAPSULE PO SCH (08:20)
[2018-07-27] MEDS: *HR* Heparin 5,000 UNIT/ML VIAL SQ SCH ×2 (08:20→16:14)
[2018-07-27] MEDS: cephALEXin 250 MG CAPSULE PO SCH ×2 (08:21→21:43)
[2018-07-27] MEDS: Lactulose Oral Soln 20 GM/30 ML UDC PO SCH ×2 (08:21→16:14)
[2018-07-27] MEDS: Vancomycin Oral Soln 125 MG/2.5 ML UDC PO SCH ×4 (08:21→21:44)
[2018-07-27] MEDS: Acetaminophen 325 MG TABLET PO PRN (16:27)
--- NOTE | 2018-07-27 17:18 | Internal Med Progress Note ---
Hospitalist Progress Note - Encounter Date of Encounter: 07/27/18 Time of Encounter: 09:00 - Subjective Interval History: patient was seen and examined at bedside. she denies fever, chills, no abnormal bleeding, melena or hematochezia. tolerating PO diet. continue to have BM has had 4 this AM she describe them as watery and non-bloody. - Exam Vitals: Temp Pulse Resp BP Pulse Ox 98.3 F 76 20 98/61 93 07/27/18 15:15 07/27/18 15:15 07/27/18 15:15 07/27/18 15:15 07/27/18 15:15 Exam: Gen.: Nonacute distress, alert and oriented 3 ENT: Mucosal membranes moist Respiratory: Lungs are clear to auscultation bilaterally without any wheezing rhonchi or rales Cardiovascular: Normal S1 and S2 regular rate rhythm no murmurs rubs or gallops Abdomen: Soft, nontender and nondistended with positive bowel sounds, nontender, no rebound tenderness Extremities: No lower extremity edema, no calf tenderness Neurological: Axox 3, no flapping tremor, moving all extremities no focal deficit. Skin: Normal color - Assessment and Plan (1) C. difficile colitis Current Visit: No Status: Acute Assessment and Plan: patient is Cdif positive started on oral vancomycin QID will require 10- 14 days will hold off of lactulose for now as she has multiple Bms daily currently gastroenterology was consulted will follow recs (2) BHANU (acute kidney injury) Current Visit: Yes Status: Acute Assessment and Plan: Renal function improved on IV fluids creatinine trended down to 1.24 from 1.8. Suspect secondary to home dose of Lasix that was increase her primary care provider and Cdif colitis causing dehydration renal US: without hydronephrosis - full report below Continue current management and monitor renal US: Benign 1.7 cm cyst within the mid left kidney. The bilateral kidneys are otherwise normal in sonographic appearance, without evidence of a renal calculus, hydronephrosis, or solid renal mass. (3) Hyperammonemia Current Visit: Yes Status: Acute Assessment and Plan: ammonia level was 75 on admission currently lactulose held due to Cdif. GI consulted will follow neuro checks Q4H aspiration fall, seizure precautions. (4) Esophageal varices determined by endoscopy Current Visit: No Status: Chronic Assessment and Plan: continue coreg and omeprazole H/h stable (5) Diabetes Current Visit: No Status: Chronic Assessment and Plan: Coverage with sliding-scale insulin and basal insulin (6) GERD (gastroesophageal reflux disease) Current Visit: No Status: Chronic Assessment and Plan: Continue PPI (7) HTN (hypertension) Current Visit: No Status: Chronic Assessment and Plan: Valsartan currently being held (8) Thyroid disease Current Visit: No Status: Chronic Assessment and Plan: Continue home dose of levothyroxine (9) HLD (hyperlipidemia) Current Visit: No Status: Chronic Assessment and Plan: continue statin (10) Recurrent UTI Current Visit: No Status: Acute Assessment and Plan: Continue home daily dose of prophylaxis with Keflex (11) 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 Current Visit: No Status: Acute Assessment and Plan: Patient presented with elevated ammonia levels 75 lactulose on hold as she has Cdif Will continue to monitor Lasix and spironolactone currently being held due to BHANU above (12) Chronic diastolic (congestive) heart failure Current Visit: No Status: Acute Assessment and Plan: Home dose of Lasix currently being held due to BHANU above (13) Hyperkalemia Current Visit: Yes Status: Acute Assessment and Plan: Resolved after given insulin and Kayexalate on admission Will continue to monitor DVT Prophylaxis: scds - Time Spent with Patient Total time spent is greater than 50% in coordination of care (as documented) at patient's floor/unit and/or counseling patient: Internal Medicine: Result - Labs CBC & Chem 7: 07/26/18 07:15 07/26/18 07:15 - ABG Interpretation ABG results: PT/INR, D-dimer PT 14.2 Seconds (9.4-12.1) H 07/26/18 07:15 - Impressions Impressions Retroperitoneum Ultrasound 07/27/18 14:00 IMPRESSION: Benign 1.7 cm cyst within the mid left kidney. The bilateral kidneys are otherwise normal in sonographic appearance, without evidence of a renal calculus, hydronephrosis, or solid renal mass. 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 Diabetes mellitus complication status: with unspecified complications Qualified Code(s): E11.8 - Type 2 diabetes mellitus with unspecified complications (6) GERD (gastroesophageal reflux disease) Qualifiers: Esophagitis presence: esophagitis presence not specified Qualified Code(s): K21.9 - Gastro-esophageal reflux disease without esophagitis (7) HTN (hypertension) Qualifiers: Hypertension type: essential hypertension Qualified Code(s): I10 - Essential (primary) hypertension (9) HLD (hyperlipidemia) Qualifiers: Hyperlipidemia type: pure hypercholesterolemia Qualified Code(s): E78.00 - Pure hypercholesterolemia, unspecified; E78.0 - Pure hypercholesterolemia
[2018-07-27] MEDS: Insulin DETEMIR 100 UNIT/ML X5UNITS SQ SCH (21:43)
[2018-07-28 07:11] LABS: Hemoglobin 11.2 g/dL (11.5-15.4); Mean Corpuscular Hemoglobin 32.9 pg (28.0-33.3); Red Blood Count 3.4 M/mcL (3.82-4.97)
[2018-07-28 07:12] LABS: Hematocrit 32.1 % (35.3-44.9); Immature Platelets 4.6 % (1.1-6.1); Mean Corpuscular HGB Conc 34.9 g/dL (31.6-35.5); Mean Corpuscular Volume 94.4 fL (83.0-100.0); Mean Platelet Volume 12.4 fL (9.4-12.4); Red Cell Distribution Width 13.2 % (11.5-14.5)
[2018-07-28] MEDS ORDERED: 0.9 % Sodium Chloride 1,000 ML ONE (07:49)
[2018-07-28] MEDS: Insulin LISPRO 300 UNITS/3 ML VIAL SQ SCH ×4 (08:00→17:24)
[2018-07-28] MEDS: cephALEXin 250 MG CAPSULE PO SCH ×2 (08:01→21:14)
[2018-07-28] MEDS: FLUoxetine 20 MG CAPSULE PO SCH (08:01)
[2018-07-28] MEDS: Vancomycin Oral Soln 125 MG/2.5 ML UDC PO SCH ×4 (08:01→21:15)
[2018-07-28] MEDS: 0.9 % Sodium Chloride 1,000 ML IVC SCH (08:18)
[2018-07-28 08:24] LABS: Calcium 11.2 mg/dL (8.6-10.3); Magnesium 1.3 mg/dL (1.6-2.6); Potassium 4.8 mEq/L (3.5-5.1)
--- NOTE | 2018-07-28 11:54 | Gastroenterology Consult Note ---
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 AFP 5 on 05/31/2018. Liver US 12/07/2017 with cirrhosis, small volume ascites, and no lesions noted. Recommend 2-4 BMs daily. Hold Lactulose for now due to Cdiff. Once Cdiff diarrhea resolved, can restart Lactulose (titrate for 2-4 BMs daily). Start Rifaximin 550 mg BID. Continue Lasix and Aldactone. Check liver US to rule out HCC. Lifestyle Changes: 1. Total abstinence from alcohol including social drinking. 2. No smoking. 3. Gradual loss of weight. 4. Drink at least 3 cups of coffee due to its antioxidant effects in the liver, it reduces risk of HCC and advance fibrosis. 5. If needed, use less than 2 g/day of Tylenol (in divided doses). 6. Vaccination for Hep A, B, Pneumococcus if not already received and yearly influenza vaccination by PCP. 7. Avoid NSAIDS as can cause kidney damage. 8. Avoid benzodiazepines and other sedatives such as anti-histamines, narcotics etc. as can cause encephalopathy or confusion. 9. Take a late carbohydrate meal supplement as it reduces glucose production from protein breakdown and thus improves nutrition. 10. In cirrhosis, statins are safe to use and also improve portal hypertension and decrease risk of HCC. 11. Screening: Hepatocellular cancer screening: US of liver and AFP every 6 months (2) C. difficile colitis Current Visit: No Status: Acute Assessment and plan: C diff positive. Continue PO Vanco to complete 14 day course. Recommend starting probiotic. - Time Spent With Patient Total time spent is greater than 50% in coordination of care (as documented) at patient's floor/unit and/or counseling patient: GI History of Present Illness - Data of Consult Patient: known to practice within the last 3 years Consult date: 07/28/18 Requesting Physician: Ayan Langston - Consult Narrative Reason for consult: Cirrhosis, C diff positive History of present illness: Ms. Mann is a 72 year old female with PMHx of MICHELLE cirrhosis,, portal HTN, CHF, DM, GERD, HTN, who presented with confusion and abnormal labs. Patient was found to have some confusion and labs revealed elevated ammonia levels in addition to hyperkalemia and BHANU. She denies fever, chills, chest pain, nausea, vomiting, melena, or hematochezia. Patient was having watery BM and C diff was positive. She was started on PO Vanco and Lactulose was held. Procedures: EGD 08/06/2017 Dr. Davey: Grade 1 esophageal varices, multiple gastric polyps, gastritis. NSAIDs: None Anticoagulation: None Past Med Surg Social Fam HX - Past Medical History Medical history: arthritis, asthma, cancer, cirrhosis, CHF, diabetes, GERD, hypertension, kidney stones, thyroid disease Additional medical history: Uterine cancer Psychiatric history: anxiety, depression, panic disorder - Past Surgical History Surgical History: cataract, cholecystectomy, hysterectomy Additional surgical history: bowel surgery - egd - colonoscopy. back sugery - Social History Smoking Status: Never smoker Smokeless Tobacco Status: No Alcohol use: none Drug use: none - Family History Mother Family Member Ethnicity: Non- Living Status: Hx Family Endocrine Disorder: Yes (DM) Father Name: Darian Family Member Ethnicity: Non- Living Status: Age at : 74 Hx Family Cardiac Disorders: Yes Hx Family Respiratory Disorders: Yes Hx Family Cancer: Yes Brother Family Member Ethnicity: Non- Living Status: Hx Family Cancer: Yes (Lung/Kidney) Hx Family Endocrine Disorder: Yes (DM) Sister Family Member Ethnicity: Non- Living Status: Still Living Hx Family Endocrine Disorder: Yes (DM) - Gastrointestinal Gastrointestinal: Present: as per HPI - Constitutional Constitutional: as per HPI - EENT Eyes: as per HPI Ears: Present: as per HPI Nose, mouth and throat: Present: as per HPI - Cardiovascular Cardiovascular ROS: Present: as per HPI - Respiratory Respiratory IM: Present: as per HPI - Genitourinary Genitourinary: Absent: change in color, Urinary frequency - Neurological ROS Neurological GI: Present: as per HPI - Hematologic/Lymphatic Hematologic/Lymphatic pediatric: Present: as per HPI - Musculoskeletal Musculoskeletal ROS GI: Present: as per HPI - Integumentary Integumentary GI: Present: as per HPI - Psychiatric ROS Psychiatric GI: Present: as per HPI - Endocrine Endocrine IM: Present: as per HPI - Constitutional Vitals: Temp Pulse Resp BP Pulse Ox 98.2 F 81 18 110/68 95 07/28/18 11:18 07/28/18 11:18 07/28/18 11:18 07/28/18 11:18 07/28/18 11:18 General appearance: Present: cooperative, A&O X 3, no acute distress, answers questions appropriately - Head Head exam: Present: atraumatic, normocephalic - Eye Eye exam: Present: normal appearance, sclera anicteric - Neck Neck exam general surgery: Present: normal inspection, trachea midline - Respiratory Respiratory exam: Present: CTAB. Absent: rales, rhonchi - Cardiovascular Cardiovascular exam: Present: RRR, +S1, +S2 - GI/Abdominal GI/Abdominal exam: Present: soft, no peritoneal signs. Absent: distended, firm, guarding, tenderness - Rectal Rectal exam: Present: deferred - Extremities Exam Extremities exam: Present: warm - Neurological Exam Neurological exam: Present: no focal deficits - Psychiatric Psychiatric exam: Present: normal affect, normal mood - Skin Skin exam: Present: dry, intact, normal color, warm Results - Labs CBC & Chem 7: 07/28/18 06:41 07/28/18 06:41 Labs: Last Result 07/28/18 06:41 Calcium 11.2 H Entire Visit 07/28/18 06:41 Hgb 11.2 L Hct 32.1 L - ABG ABG results: PT/INR, D-dimer PT 14.2 Seconds (9.4-12.1) H 07/26/18 07:15 - Impressions Impressions Retroperitoneum Ultrasound 07/27/18 14:00 IMPRESSION: Benign 1.7 cm cyst within the mid left kidney. The bilateral kidneys are otherwise normal in sonographic appearance, without evidence of a renal calculus, hydronephrosis, or solid renal mass. D/ / Tre Archibald MD / Tre Archibald MD Interpreting Provider: Tre Archibald MD Consult Discharge Plan - Plan Referrals: Addison Jeffery [Primary Care Provider] - Prescriptions: Vancomycin Oral Soln [Firvanq] 125 mg PO QID 10 Days #40 udc <Salome Davey - Last Filed: 07/28/18 18:38> Date of Encounter: 07/28/18 Time of Encounter: 17:00 - Time Spent With Patient Total time spent is greater than 50% in coordination of care (as documented) at patient's floor/unit and/or counseling patient: GI History of Present Illness - Data of Consult Requesting Physician: Ayan Langston - Consult Narrative History of present illness: Ms. Mann is a 72 year old female - Constitutional Vitals: Temp Pulse Resp BP Pulse Ox 97.9 F 78 14 148/69 98 07/28/18 17:24 07/28/18 17:24 07/28/18 17:24 07/28/18 17:24 07/28/18 17:24 Results - Labs CBC & Chem 7: 07/28/18 06:41 07/28/18 06:41 Labs: Last Result 07/28/18 06:41 Calcium 11.2 H Entire Visit 07/28/18 06:41 Hgb 11.2 L Hct 32.1 L - ABG ABG results: PT/INR, D-dimer PT 14.2 Seconds (9.4-12.1) H 07/26/18 07:15 - Attending Attestation I have personally performed a face to face evaluation on this patient. I have reviewed and agree with the care plan. History and Exam by me shows: Patient seen at the bedside side. Denies any abdominal pain on examination: Patient alert and awake abdomen is benign. Assessment: Patient with Michelle cirrhosis now with C. difficile and also with acute on chronic renal failure along with encephalopathy which is multifactorial. Rec: Cont Vanco. Recommend decreasing dose of Lasix to 40 mg once a day along with Aldactone 50 mg once a day at the time of discharge. Follow-up with GI as an outpatient
[2018-07-28] MEDS: Lactobacillus 1 EACH CAP.SPRINK PO SCH (12:20)
--- NOTE | 2018-07-28 13:16 | Internal Med Progress Note ---
Hospitalist Progress Note - Encounter Date of Encounter: 07/28/18 Time of Encounter: 13:13 - Subjective Interval History: deisy was seen and examiend at bedside. continues to have loose BMs, ( too many to count) as per patient over the past 24hrs. she describs as loose and watery diarrhea, denies blood. she denies abdominal pain, N/V. has had no chest pain. - Exam Vitals: Temp Pulse Resp BP Pulse Ox 98.2 F 81 18 110/68 95 07/28/18 11:18 07/28/18 11:18 07/28/18 11:18 07/28/18 11:18 07/28/18 11:18 Exam: Gen.: Nonacute distress, alert and oriented 3 ENT: Mucosal membranes moist Respiratory: Lungs are clear to auscultation bilaterally without any wheezing rhonchi or rales Cardiovascular: Normal S1 and S2 regular rate rhythm no murmurs rubs or gallops Abdomen: Soft, nontender and nondistended with positive bowel sounds, nontender, no rebound tenderness Extremities: No lower extremity edema, no calf tenderness Neurological: Axox 3, no flapping tremor, moving all extremities no focal deficit. Skin: Normal color - Assessment and Plan (1) C. difficile colitis Current Visit: No Status: Acute Assessment and Plan: patient is Cdif positive started on oral vancomycin QID will require 10- 14 days will hold off of lactulose for now as she has multiple Bms daily currently lactobacillus gastroenterology recs appreciated (2) Hypercalcemia Current Visit: Yes Status: Acute Assessment and Plan: calcium was 12.4 on admission trended down to 11.2 continue with IV fluids most likely secondary to dehydration will restart lasix in AM once she has been rehydrated. (3) BHANU (acute kidney injury) Current Visit: Yes Status: Acute Assessment and Plan: Renal function improved on IV fluids Suspect secondary to home dose of Lasix that was increase her primary care provider and Cdif colitis causing dehydration on admission creatinine was 1.8 and trended down to 1.1 will resume lasix and aldactone once renal functions have stabilized and when she is not at risk of dehydration. renal US: without hydronephrosis - full report below Continue current management and monitor renal US: Benign 1.7 cm cyst within the mid left kidney. The bilateral kidneys are otherwise normal in sonographic appearance, without evidence of a renal calculus, hydronephrosis, or solid renal mass. (4) Hyperammonemia Current Visit: Yes Status: Acute Assessment and Plan: ammonia level was 75 on admission currently lactulose held due to Cdif. started on rifaxmin GI consulted will follow neuro checks Q4H aspiration fall, seizure precautions. (5) 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 Current Visit: No Status: Acute Assessment and Plan: MELD-Na 23 and Child-Avendano class B. Will continue to monitor Lasix and spironolactone currently being held due to dehydration RU US orrdered AFP was 5 in may 2018 (6) Esophageal varices determined by endoscopy Current Visit: No Status: Chronic Assessment and Plan: continue coreg and omeprazole H/h stable (7) Hypomagnesemia Current Visit: Yes Status: Acute Assessment and Plan: replaced (8) Diabetes Current Visit: No Status: Chronic Assessment and Plan: Coverage with sliding-scale insulin and basal insulin (9) GERD (gastroesophageal reflux disease) Current Visit: No Status: Chronic Assessment and Plan: Continue PPI (10) HTN (hypertension) Current Visit: No Status: Chronic Assessment and Plan: Valsartan currently being held (11) Thyroid disease Current Visit: No Status: Chronic Assessment and Plan: Continue home dose of levothyroxine (12) HLD (hyperlipidemia) Current Visit: No Status: Chronic Assessment and Plan: continue statin (13) Recurrent UTI Current Visit: No Status: Acute Assessment and Plan: Continue home daily dose of prophylaxis with Keflex (14) Chronic diastolic (congestive) heart failure Current Visit: No Status: Acute Assessment and Plan: Home dose of Lasix currently being held due to BHANU above continue with BB (15) Hyperkalemia Current Visit: Yes Status: Resolved Assessment and Plan: r DVT Prophylaxis: scds - Summary of Assessment and Plan Summary of Assessment and Plan: Lifestyle Changes: 1. Total abstinence from alcohol including social drinking. 2. No smoking. 3. Gradual loss of weight. 4. Drink at least 3 cups of coffee due to its antioxidant effects in the liver, it reduces risk of HCC and advance fibrosis. 5. If needed, use less than 2 g/day of Tylenol (in divided doses). 6. Vaccination for Hep A, B, Pneumococcus if not already received and yearly influenza vaccination by PCP. 7. Avoid NSAIDS as can cause kidney damage. 8. Avoid benzodiazepines and other sedatives such as anti-histamines, narcotics etc. as can cause encephalopathy or confusion. 9. Take a late carbohydrate meal supplement as it reduces glucose production from protein breakdown and thus improves nutrition. 10. In cirrhosis, statins are safe to use and also improve portal hypertension and decrease risk of HCC. 11. Screening: Hepatocellular cancer screening: US of liver and AFP every 6 months - Time Spent with Patient Total time spent is greater than 50% in coordination of care (as documented) at patient's floor/unit and/or counseling patient: Internal Medicine: Result - Labs CBC & Chem 7: 07/28/18 06:41 07/28/18 06:41 Labs: Short CBC 07/28/18 Range/Units 06:41 WBC 4.2 L (4.3-11.1) K/mcL Hgb 11.2 L (11.5-15.4) g/dL Hct 32.1 L (35.3-44.9) % Plt Count 46 L (140-400) K/mcL BMP 07/28/18 06:41 Sodium 135 L Potassium 4.8 Chloride 106 Carbon Dioxide 22 L BUN 21 Creatinine 1.11 Glucose 220 H Calcium 11.2 H - ABG Interpretation ABG results: PT/INR, D-dimer PT 14.2 Seconds (9.4-12.1) H 07/26/18 07:15 - Impressions Impressions Retroperitoneum Ultrasound 07/27/18 14:00 IMPRESSION: Benign 1.7 cm cyst within the mid left kidney. The bilateral kidneys are otherwise normal in sonographic appearance, without evidence of a renal calculus, hydronephrosis, or solid renal mass. D/ / Tre Archibald MD / Tre Archibald MD Interpreting Provider: Tre Archibald MD Consult Discharge Plan - Plan Referrals: Addison Jeffery [Primary Care Provider] - (8) Diabetes Qualifiers: Diabetes mellitus type: type 2 Diabetes mellitus [facility] insulin use: unspecified [facility] insulin use status Diabetes mellitus complication status: with unspecified complications Qualified Code(s): E11.8 - Type 2 diabetes mellitus with unspecified complications (9) GERD (gastroesophageal reflux disease) Qualifiers: Esophagitis presence: esophagitis presence not specified Qualified Code(s): K21.9 - Gastro-esophageal reflux disease without esophagitis (10) HTN (hypertension) Qualifiers: Hypertension type: essential hypertension Qualified Code(s): I10 - Essential (primary) hypertension (12) HLD (hyperlipidemia) Qualifiers: Hyperlipidemia type: pure hypercholesterolemia Qualified Code(s): E78.00 - Pure hypercholesterolemia, unspecified; E78.0 - Pure hypercholesterolemia
--- NOTE | 2018-07-28 21:58 | Electrocardiograph Report ---
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
[2018-07-28] MEDS: Insulin DETEMIR 100 UNIT/ML X5UNITS SQ SCH (22:21)
[2018-07-29] MEDS: Acetaminophen 325 MG TABLET PO PRN ×3 (03:12→22:30)
[2018-07-29 06:11] LABS: Hemoglobin 9.9 g/dL (11.5-15.4); Mean Corpuscular Volume 94.6 fL (83.0-100.0)
[2018-07-29 06:13] LABS: Hematocrit 28.3 % (35.3-44.9); Immature Platelets 5.2 % (1.1-6.1); Mean Corpuscular Hemoglobin 33.1 pg (28.0-33.3); Mean Platelet Volume 12.4 fL (9.4-12.4); Red Blood Count 2.99 M/mcL (3.82-4.97); Red Cell Distribution Width 13.4 % (11.5-14.5)
[2018-07-29 06:20] LABS: BUN/Creatinine Ratio 18 (6-26); Blood Urea Nitrogen 19 mg/dL (8-23); Calcium 10.2 mg/dL (8.6-10.3); Carbon Dioxide 20 mEq/L (23-29); Chloride 106 mEq/L (98-107); Glucose 280 mg/dL (70-105); Magnesium 1.4 mg/dL (1.6-2.6); Osmolality,Calculated 286 (280-300); Phosphorous 1.5 mg/dL (2.7-4.5); Potassium 4.2 mEq/L (3.5-5.1); Sodium 132 mEq/L (136-145); eGFR For Non-African Americans 53 (> 60)
[2018-07-29] MEDS: 0.9 % Sodium Chloride 1,000 ML IVC SCH (06:25)
[2018-07-29] MEDS: FLUoxetine 20 MG CAPSULE PO SCH (08:41)
[2018-07-29] MEDS: Vancomycin Oral Soln 125 MG/2.5 ML UDC PO SCH ×4 (08:41→21:24)
[2018-07-29] MEDS: Insulin LISPRO 300 UNITS/3 ML VIAL SQ SCH ×3 (08:41→16:27)
[2018-07-29] MEDS: Furosemide 40 MG TABLET PO SCH (08:42)
[2018-07-29] MEDS: Lactobacillus 1 EACH CAP.SPRINK PO SCH (08:42)
--- NOTE | 2018-07-29 14:35 | Internal Med Progress Note ---
Hospitalist Progress Note - Encounter Date of Encounter: 07/29/18 Time of Encounter: 09:00 - Subjective Interval History: Patient was seen and examined at bedside. Reports that she had 6 bowel movements without were more formed as compared to yesterday. Denies any nausea or vomiting and is tolerating liquid diet. Is inquiring about discharge discussed that she will be likely discharged over the weekend if she is less than 4 bowel movements per day. I discussed that were continuing to replace her electrolytes as she is losing them while 7 diarrhea. All questions answered reached denies any melena or hematochezia or hematemesis. - Exam Vitals: Temp Pulse Resp BP Pulse Ox 98.0 F 65 16 111/67 95 07/29/18 11:14 07/29/18 11:14 07/29/18 11:14 07/29/18 11:14 07/29/18 11:14 Exam: Gen.: Nonacute distress, alert and oriented 3 ENT: Mucosal membranes moist Respiratory: Lungs are clear to auscultation bilaterally without any wheezing rhonchi or rales Cardiovascular: Normal S1 and S2 regular rate rhythm no murmurs rubs or gallops Abdomen: Soft, nontender and nondistended with positive bowel sounds, nontender, no rebound tenderness Extremities: No lower extremity edema, no calf tenderness Neurological: Axox 3, no flapping tremor, moving all extremities no focal deficit. Skin: Normal color - Assessment and Plan (1) C. difficile colitis Current Visit: No Status: Acute Assessment and Plan: patient is Cdif positive started on oral vancomycin QID will require 10 days total will hold off of lactulose for now as she has multiple Bms daily currently lactobacillus gastroenterology recs appreciated (2) BHANU (acute kidney injury) Current Visit: Yes Status: Acute Assessment and Plan: resolved Suspect secondary to home dose of Lasix that was increase her primary care provider and Cdif colitis causing dehydration on admission creatinine was 1.8 and trended down to 1.03 resumed lasix at lowr dose and aldactone - watch renal functions closely renal US: without hydronephrosis - full report below renal US: Benign 1.7 cm cyst within the mid left kidney. The bilateral kidneys are otherwise normal in sonographic appearance, without evidence of a renal calculus, hydronephrosis, or solid renal mass. (3) Hyperammonemia Current Visit: Yes Status: Acute Assessment and Plan: ammonia level was 75 on admission currently lactulose held due to Cdif. started on rifaxmin GI on board neuro checks Q4H aspiration fall, seizure precautions. (4) 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 Current Visit: No Status: Acute Assessment and Plan: MELD-Na 23 and Child-Avendano class B. Will continue to monitor Lasix and spironolactone restarted RUQ 07/28: No evidence of hepatocellular carcinoma. AFP was 5 in may 2018 (5) Esophageal varices determined by endoscopy Current Visit: No Status: Chronic Assessment and Plan: continue coreg and omeprazole H/h stable (6) Hypophosphatemia Current Visit: Yes Status: Acute Assessment and Plan: replaced follow in AM (7) Hypomagnesemia Current Visit: Yes Status: Acute Assessment and Plan: replaced (8) Diabetes Current Visit: No Status: Chronic Assessment and Plan: Coverage with sliding-scale insulin and basal insulin (9) GERD (gastroesophageal reflux disease) Current Visit: No Status: Chronic Assessment and Plan: Continue PPI (10) HTN (hypertension) Current Visit: No Status: Chronic Assessment and Plan: Valsartan currently being held (11) Thyroid disease Current Visit: No Status: Chronic Assessment and Plan: Continue home dose of levothyroxine (12) HLD (hyperlipidemia) Current Visit: No Status: Chronic Assessment and Plan: continue statin (13) Chronic diastolic (congestive) heart failure Current Visit: No Status: Acute Assessment and Plan: continue with BB, lasix and aldactone (14) Hypercalcemia Current Visit: Yes Status: Resolved Assessment and Plan: calcium was 12.4 on admission trended down to 10.2 and resolved most likely secondary to dehydration from significant diuretic dose as OP lasix restarted 40 mg daily instead of BID. continue to monitor calcium levels (15) Hyperkalemia Current Visit: Yes Status: Resolved - Time Spent with Patient Total time spent is greater than 50% in coordination of care (as documented) at patient's floor/unit and/or counseling patient: Internal Medicine: Result - Labs CBC & Chem 7: 07/29/18 05:03 07/29/18 05:03 Labs: Short CBC 07/29/18 Range/Units 05:03 WBC 3.3 L (4.3-11.1) K/mcL Hgb 9.9 L (11.5-15.4) g/dL Hct 28.3 L (35.3-44.9) % Plt Count 40 L (140-400) K/mcL BMP 07/29/18 05:03 Sodium 132 L Potassium 4.2 Chloride 106 Carbon Dioxide 20 L BUN 19 Creatinine 1.03 Glucose 280 H Calcium 10.2 - ABG Interpretation ABG results: PT/INR, D-dimer PT 14.2 Seconds (9.4-12.1) H 07/26/18 07:15 - Impressions Impressions Liver Ultrasound 07/28/18 17:30 IMPRESSION: No evidence of hepatocellular carcinoma. D/ / Juarez Sebastian MD / Juarez Sebastian MD Interpreting Provider: Juarez Sebastian MD Consult Discharge Plan - Plan Referrals: Addison Jeffery [Primary Care Provider] - Prescriptions: RX: Vancomycin Oral Soln [Firvanq] 125 mg PO QID 10 Days #40 udc (8) Diabetes Qualifiers: Diabetes mellitus type: type 2 Diabetes mellitus nursing home insulin use: unspecified nursing home insulin use status Diabetes mellitus complication status: with unspecified complications Qualified Code(s): E11.8 - Type 2 diabetes christy itus with unspecified complications (9) GERD (gastroesophageal reflux disease) Qualifiers: Esophagitis presence: esophagitis presence not specified Qualified Code(s): K21.9 - Gastro-esophageal reflux disease without esophagitis (10) HTN (hypertension) Qualifiers: Hypertension type: essential hypertension Qualified Code(s): I10 - Essential (primary) hypertension (12) HLD (hyperlipidemia) Qualifiers: Hyperlipidemia type: pure hypercholesterolemia Qualified Code(s): E78.00 - Pure hypercholesterolemia, unspecified; E78.0 - Pure hypercholesterolemia
[2018-07-29] MEDS: Insulin DETEMIR 100 UNIT/ML X5UNITS SQ SCH (21:24)
[2018-07-30 06:37] LABS: Hemoglobin 9.6 g/dL (11.5-15.4); Red Cell Distribution Width 13.3 % (11.5-14.5)
[2018-07-30 06:39] LABS: Hematocrit 26.4 % (35.3-44.9); Immature Platelets 5.5 % (1.1-6.1); Mean Corpuscular HGB Conc 36.4 g/dL (31.6-35.5); Mean Corpuscular Hemoglobin 33.6 pg (28.0-33.3); Mean Corpuscular Volume 92.3 fL (83.0-100.0); Mean Platelet Volume 12.2 fL (9.4-12.4); Red Blood Count 2.86 M/mcL (3.82-4.97)
[2018-07-30 06:56] LABS: BUN/Creatinine Ratio 16 (6-26); Blood Urea Nitrogen 16 mg/dL (8-23); Calcium 9.7 mg/dL (8.6-10.3); Carbon Dioxide 22 mEq/L (23-29); Chloride 107 mEq/L (98-107); Glucose 212 mg/dL (70-105); Magnesium 1.6 mg/dL (1.6-2.6); Osmolality,Calculated 285 (280-300); Phosphorous 2.1 mg/dL (2.7-4.5); Potassium 4.2 mEq/L (3.5-5.1); Sodium 134 mEq/L (136-145); eGFR For Non-African Americans 55 (> 60)
[2018-07-30] MEDS: Lactobacillus 1 EACH CAP.SPRINK PO SCH (08:40)
[2018-07-30] MEDS: Insulin LISPRO 300 UNITS/3 ML VIAL SQ SCH ×3 (08:40→16:35)
[2018-07-30] MEDS: Acetaminophen 325 MG TABLET PO PRN (08:40)
[2018-07-30] MEDS: Furosemide 40 MG TABLET PO SCH (08:41)
[2018-07-30] MEDS: Vancomycin Oral Soln 125 MG/2.5 ML UDC PO SCH ×4 (08:41→20:37)
[2018-07-30] MEDS: FLUoxetine 20 MG CAPSULE PO SCH (08:41)
--- NOTE | 2018-07-30 12:53 | Internal Med Progress Note ---
Hospitalist Progress Note - Encounter Date of Encounter: 07/30/18 Time of Encounter: 09:00 - Subjective Interval History: patient was seen and examined at bedside was tearful and felt as though she was never going to get better to leave the hospital. i discussed the plan of care with josee rosy. she was reassured that she is improving and close to discharge. unfortunately family brought compensation for vancomycin late afternoon and it was not filled at out pharmacy down stairs. nurse was made aware. patient reports that her BMs are more fomed and she reports 3 episodes of BM over yesterday. RN has documented one BM. RN aware to document accurate #BMs. she denies fever, chills, N/V, CP or palpitations. i was told by the RN "Pharmacy closed today but this RN [facility] who states they do not have the oral vanco and cannot get it over weekend. Dr. Wolf made aware and states pt will stay until Wednesday. Pt made aware and explained that script can be filled when Pharmacy opens Wednesday morning then pt can discharge. Pt states she is ok with this. Pt's sister Evelin and pt's Al made aware of situation as well and state Wednesday would probably work better anyways" - Exam Vitals: Temp Pulse Resp BP Pulse Ox 98.5 F 60 18 148/78 97 07/30/18 11:15 07/30/18 11:15 07/30/18 11:15 07/30/18 11:15 07/30/18 11:15 Exam: Gen.: Nonacute distress, alert and oriented 3 ENT: Mucosal membranes moist Respiratory: Lungs are clear to auscultation bilaterally without any wheezing rhonchi or rales Cardiovascular: Normal S1 and S2 regular rate rhythm no murmurs rubs or gallops Abdomen: Soft, nontender and nondistended with positive bowel sounds, nontender, no rebound tenderness Extremities: No lower extremity edema, no calf tenderness Neurological: Axox 3, no flapping tremor, moving all extremities no focal deficit. Skin: Normal color - Assessment and Plan (1) C. difficile colitis Current Visit: No Status: Acute Assessment and Plan: patient is Cdif positive started on oral vancomycin QID will require 10 days total will hold off of lactulose for now as she has multiple Bms daily currently lactobacillus gastroenterology recs appreciated (2) Hyperammonemia Current Visit: Yes Status: Acute Assessment and Plan: ammonia level was 75 on admission now 62 currently lactulose held due to Cdif. started on rifaxmin GI on board neuro checks Q4H aspiration fall, seizure precautions. 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 Will continue to monitor Lasix and spironolactone restarted RUQ 07/28: No evidence of hepatocellular carcinoma. AFP was 5 in may 2018 (4) Esophageal varices determined by endoscopy Current Visit: No Status: Chronic Assessment and Plan: continue coreg and omeprazole H/h stable (5) Hypophosphatemia Current Visit: Yes Status: Acute Assessment and Plan: replaced follow in AM (6) Diabetes Current Visit: No Status: Chronic Assessment and Plan: Coverage with sliding-scale insulin and basal insulin (7) GERD (gastroesophageal reflux disease) Current Visit: No Status: Chronic Assessment and Plan: Continue PPI (8) HTN (hypertension) Current Visit: No Status: Chronic Assessment and Plan: continue home medications if not CI (9) Thyroid disease Current Visit: No Status: Chronic Assessment and Plan: Continue home dose of levothyroxine (10) HLD (hyperlipidemia) Current Visit: No Status: Chronic Assessment and Plan: continue statin (11) Chronic diastolic (congestive) heart failure Current Visit: No Status: Acute Assessment and Plan: continue with BB, lasix and aldactone (12) Hypercalcemia Current Visit: Yes Status: Resolved Assessment and Plan: calcium was 12.4 on admission trended down to 10.2 and resolved most likely secondary to dehydration from significant diuretic dose as OP lasix restarted 40 mg daily instead of BID. continue to monitor calcium levels (13) Hyperkalemia Current Visit: Yes Status: Resolved (14) BHANU (acute kidney injury) Current Visit: Yes Status: Resolved Assessment and Plan: resolved Suspect secondary to home dose of Lasix that was increase her primary care provider and Cdif colitis causing dehydration on admission creatinine was 1.8 and trended down to 1.03 resumed lasix at lowr dose and aldactone - watch renal functions closely renal US: without hydronephrosis - full report below renal US: Benign 1.7 cm cyst within the mid left kidney. The bilateral kidneys are otherwise normal in sonographic appearance, without evidence of a renal calculus, hydronephrosis, or solid renal mass. (15) Hypomagnesemia Current Visit: Yes Status: Resolved - Time Spent with Patient Total time spent is greater than 50% in coordination of care (as documented) at patient's floor/unit and/or counseling patient: Internal Medicine: Result - Labs CBC & Chem 7: 07/30/18 05:18 07/30/18 05:18 Labs: Short CBC 07/30/18 Range/Units 05:18 WBC 2.5 L (4.3-11.1) K/mcL Hgb 9.6 L (11.5-15.4) g/dL Hct 26.4 L (35.3-44.9) % Plt Count 38 L (140-400) K/mcL BMP 07/30/18 05:18 Sodium 134 L Potassium 4.2 Chloride 107 Carbon Dioxide 22 L BUN 16 Creatinine 1.00 Glucose 212 H Calcium 9.7 - ABG Interpretation ABG results: PT/INR, D-dimer PT 14.2 Seconds (9.4-12.1) H 07/26/18 07:15 - VTE Documentation of Mechanical Device: Intermittent pneumatic compression device Consult Discharge Plan - Plan Referrals: Addison Jeffery [Primary Care Provider] - Prescriptions: Vancomycin Oral Soln [Firvanq] 125 mg PO QID 10 Days #40 udc (6) Diabetes Qualifiers: Diabetes mellitus type: type 2 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 insulin use status Diabetes mellitus complication status: with unspecified complications Qualified Code(s): E11.8 - Type 2 diabetes mellitus with unspecified complications (7) GERD (gastroesophageal reflux disease) Qualifiers: Esophagitis presence: esophagitis presence not specified Qualified Code(s): K21.9 - Gastro-esophageal reflux disease without esophagitis (8) HTN (hypertension) Qualifiers: Hypertension type: essential hypertension Qualified Code(s): I10 - Essential (primary) hypertension (10) HLD (hyperlipidemia) Qualifiers: Hyperlipidemia type: pure hypercholesterolemia Qualified Code(s): E78.00 - Pure hypercholesterolemia, unspecified; E78.0 - Pure hypercholesterolemia
[2018-07-30] MEDS: Insulin DETEMIR 100 UNIT/ML X5UNITS SQ SCH (20:37)
[2018-07-31 06:50] LABS: BUN/Creatinine Ratio 15 (6-26); Blood Urea Nitrogen 16 mg/dL (8-23); Calcium 10.1 mg/dL (8.6-10.3); Carbon Dioxide 21 mEq/L (23-29); Chloride 105 mEq/L (98-107); Glucose 140 mg/dL (70-105); Magnesium 1.4 mg/dL (1.6-2.6); Osmolality,Calculated 283 (280-300); Phosphorous 2.2 mg/dL (2.7-4.5); Potassium 3.7 mEq/L (3.5-5.1); Sodium 135 mEq/L (136-145); eGFR For Non-African Americans 51 (> 60)
[2018-07-31] MEDS: Insulin LISPRO 300 UNITS/3 ML VIAL SQ SCH ×3 (08:20→16:49)
[2018-07-31] MEDS: FLUoxetine 20 MG CAPSULE PO SCH (08:21)
[2018-07-31] MEDS: Lactobacillus 1 EACH CAP.SPRINK PO SCH (08:22)
[2018-07-31] MEDS: Furosemide 40 MG TABLET PO SCH (08:22)
[2018-07-31] MEDS: Vancomycin Oral Soln 125 MG/2.5 ML UDC PO SCH ×4 (08:23→20:33)
--- NOTE | 2018-07-31 11:25 | Internal Med Progress Note ---
Hospitalist Progress Note - Encounter Date of Encounter: 07/31/18 Time of Encounter: 09:00 - Subjective Interval History: She was seen and examined at bedside. Reports that she has had 3-4 bowel movements in the past 24 hours and they are becoming more formed. Denies any abdominal pain. No overnight events. Tolerating by mouth diet, all questions answered. Not tearful currently however feels discouraged and is uninterested in the things that she was interested in before. Mood is down with flat affect. - Exam Vitals: Temp Pulse Resp BP Pulse Ox 99.6 F 89 20 129/74 95 07/31/18 07:22 07/31/18 07:22 07/31/18 07:22 07/31/18 07:22 07/31/18 07:22 Exam: Gen.: Nonacute distress, alert and oriented 3 ENT: Mucosal membranes moist Respiratory: Lungs are clear to auscultation bilaterally without any wheezing rhonchi or rales Cardiovascular: Normal S1 and S2 regular rate rhythm no murmurs rubs or gallops Abdomen: Soft, nontender and nondistended with positive bowel sounds, nontender, no rebound tenderness Extremities: No lower extremity edema, no calf tenderness Neurological: Axox 3, no flapping tremor, moving all extremities no focal d eficit. Skin: Normal color Psych: flat affect, depressed - Assessment and Plan (1) C. difficile colitis Current Visit: No Status: Acute Assessment and Plan: patient is Cdif positive started on oral vancomycin QID will require 10 days total will hold off of lactulose for now as she has multiple Bms daily currently lactobacillus gastroenterology recs appreciated (2) Hyperammonemia Current Visit: Yes Status: Acute Assessment and Plan: ammonia level was 75 on admission now 62 currently lactulose held due to Cdif. started on rifaxmin GI on board neuro checks Q4H aspiration fall, seizure precautions. 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 Will continue to monitor Lasix and spironolactone restarted RUQ 07/28: No evidence of hepatocellular carcinoma. AFP was 5 in may 2018 (4) Esophageal varices determined by endoscopy Current Visit: No Status: Chronic Assessment and Plan: continue coreg and omeprazole H/h stable (5) Hypophosphatemia Current Visit: Yes Status: Acute Assessment and Plan: replaced follow in AM (6) Diabetes Current Visit: No Status: Chronic Assessment and Plan: Coverage with sliding-scale insulin and basal insulin (7) GERD (gastroesophageal reflux disease) Current Visit: No Status: Chronic Assessment and Plan: Continue PPI (8) HTN (hypertension) Current Visit: No Status: Chronic Assessment and Plan: continue home medications if not CI (9) Thyroid disease Current Visit: No Status: Chronic Assessment and Plan: Continue home dose of levothyroxine (10) HLD (hyperlipidemia) Current Visit: No Status: Chronic Assessment and Plan: continue statin (11) Chronic diastolic (congestive) heart failure Current Visit: No Status: Acute Assessment and Plan: continue with BB, lasix and aldactone (12) Hypomagnesemia Current Visit: Yes Status: Acute Assessment and Plan: replaced (13) Hypercalcemia Current Visit: Yes Status: Resolved Assessment and Plan: calcium was 12.4 on admission trended down to 10.2 and resolved most likely secondary to dehydration from significant diuretic dose as OP lasix restarted 40 mg daily instead of BID. continue to monitor calcium levels (14) Hyperkalemia Current Visit: Yes Status: Resolved (15) BHANU (acute kidney injury) Current Visit: Yes Status: Resolved DVT Prophylaxis: scds - Time Spent with Patient Total time spent is greater than 50% in coordination of care (as documented) at patient's floor/unit and/or counseling patient: Internal Medicine: Result - Labs CBC & Chem 7: 07/30/18 05:18 07/31/18 05:27 Labs: BMP 07/31/18 05:27 Sodium 135 L Potassium 3.7 Chloride 105 Carbon Dioxide 21 L BUN 16 Creatinine 1.07 Glucose 140 H Calcium 10.1 - ABG Interpretation ABG results: PT/INR, D-dimer PT 14.2 Seconds (9.4-12.1) H 07/26/18 07:15 - VTE Documentation of Mechanical Device: Intermittent pneumatic compression device Consult Discharge Plan - Plan Referrals: Addison Jeffery [Primary Care Provider] - Prescriptions: Vancomycin Oral Soln [Firvanq] 125 mg PO QID 10 Days #40 udc ____ (6) Diabetes Qualifiers: Diabetes mellitus type: type 2 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 Diabetes mellitus complication status: with unspecified complications Qualified Code(s): E11.8 - Type 2 diabetes mellitus with unspecified complications (7) GERD (gastroesophageal reflux disease) Qualifiers: Esophagitis presence: esophagitis presence not specified Qualified Code(s): K21.9 - Gastro-esophageal reflux disease without esophagitis (8) HTN (hypertension) Qualifiers: Hypertension type: essential hypertension Qualified Code(s): I10 - Essential (primary) hypertension (10) HLD (hyperlipidemia) Qualifiers: Hyperlipidemia type: pure hypercholesterolemia Qualified Code(s): E78.00 - Pure hypercholesterolemia, unspecified; E78.0 - Pure hypercholesterolemia
--- NOTE | 2018-07-31 11:36 | Consult Note ---
Date of Encounter: 07/31/18 Time of Encounter: 11:34 Assessment & Recommendation (1) Depression Current visit: Yes Status: Acute Assessment & Recommendation: Patient says she has been depressed at this level for years. She reports occasional crying spells. She denies suicidal or homicidal thoughts and as such does not meet criteria for inpatient psychiatric hospitalization. She has been on the current dose of Prozac for quite a while. I discussed with her increasing this to 40 mg she said she would prefer to talk about it with her family physician. Additionally, her mild confusion does not seem to be related to any underlying psychiatric condition. Psychiatry will sign off. Qualifiers: Depression Type: major depressive disorder Major depression recurrence: recurrent Active/Remission status: currently active Major depression episode severity: moderate Qualified Code(s): F33.1 - Major depressive disorder, recurrent, moderate History of Present Illness Patient: new to practice Requesting Physician: Miranda Wolf MD Reason for consult: Depression History of present illness: Ms. Mann is a 72 year old female hx RAMOS cirrhosis c/b portal HTN, HTN, HFpEF, DM2, recurrent UTIs, C diff colitis, who p/w confusion and abnormal labs. She is being treated for this C. difficile and hyperammonemia. She has had depression. She reports she had a crying spell yesterday. She says she gets these once or twice a week. She says that she is always depressed at baseline no. She reports sad mood, decreased interest, worthlessness, low energy, she says that she has poor concentration and some confusion at times related to her ammonia. She denied suicidal thoughts, ideations, or plans. She is future oriented. She has no auditory or visual hallucinations or psychosis. CC: Miranda Wolf MD Past Med Surg Social Fam HX - Past Medical History Medical history: arthritis, asthma, cancer, cirrhosis, CHF, diabetes, GERD, hypertension, kidney stones, thyroid disease - Past Psychiatric History Psychiatric history: Reports: depression. Denies: prior suicide attempt, previous psychiatric hospitalization Past psychiatric history details: She has no prior psychiatric hospitalizations. She had a time where she thought about hurting herself before her first child was born but no actual suicide attempts. She has been on Prozac described by her PCP for quite a while. She is not currently have a psychiatrist or therapist. Family psychiatric history: No Family History of Suicide: None - Past Surgical History Surgical History: cataract, cholecystectomy, hysterectomy - Social History Smoking Status: Never smoker Smokeless Tobacco Status: No Alcohol use: none Drug use: none Occupational status: retired Current living situation: Home - Independent Recent Out of Country Travel Within the Last 8 Weeks: No Exposure or Possible Exposure to Illness During Travel: No Additional social history: She lives with her . 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 - Family History Mother Family Member Ethnicity: Non- Living Status: Hx Family Endocrine Disorder: Yes (DM) Father Name: Darian Family Member Ethnicity: Non- Living Status: Age at : 74 Hx Family Cardiac Disorders: Yes Hx Family Respiratory Disorders: Yes Hx Family Cancer: Yes Brother Family Member Ethnicity: Non- Living Status: Hx Family Cancer: Yes (Lung/Kidney) Hx Family Endocrine Disorder: Yes (DM) Sister Family Member Ethnicity: Non- Living Status: Still Living Hx Family Endocrine Disorder: Yes (DM) Medications & Allergies HYDROcodone/Acet 5/325 mg [[place] 5-325 mg] 1 tab PO Q6H PRN 10/04/17 [History] Insulin Glargine [Lantus] 40 unit SQ HS 10/04/17 [History] Levothyroxine Sodium 112 mcg PO DAILY 10/04/17 [History] Pantoprazole Sodium 40 mg PO DAILY 10/04/17 [History] Potassium Chloride 10 meq PO DAILY #30 tab.er.prt 10/06/17 [Rx] Furosemide [Lasix] 40 mg PO BID 12/06/17 [History] Metformin HCl 500 mg PO BIDWM 12/06/17 [History] Rosuvastatin Calcium 5 mg PO DAILY 12/06/17 [History] Valsartan 20 mg PO BID 12/06/17 [History] FLUoxetine HCl [PROzac] 20 mg PO DAILY 02/07/18 [History] Alendronate Sodium 70 mg PO QWEEK 07/25/18 [History] Calcium Carbonate/Vitamin D3 [Oyster Shell Calcium-Vit D Tab] 1 tab PO DAILY 07/25/18 [History] Carvedilol 3.125 mg PO BID 07/25/18 [History] LORazepam [Ativan] 1 mg PO BID PRN 07/25/18 [History] Multivitamin [One Daily Essential] 1 tab PO DAILY 07/25/18 [History] Spironolactone 50 mg PO BID 07/25/18 [History] Zinc Gluconate 100 mg PO TID 07/25/18 [History] cephALEXin [Keflex] 250 mg PO DAILY 07/25/18 [History] Vancomycin Oral Soln [Firvanq] 125 mg PO QID 10 Days #40 [facility] 07/28/18 [Rx] Allergy/AdvReac Type Severity Reaction Status Date / Time nitrofurantoin Allergy Rash Verified 05/18/18 15:20 [From Macrobid] Sulfa (Sulfonamide Allergy Rash Verified 05/18/18 15:20 Antibiotics) exenatide [From [place]] AdvReac Vomiting Verified 05/18/18 15:20 liraglutide [From Victoza] AdvReac Vomiting Verified 05/18/18 15:20 Review of Systems Constitutional: Reports: weakness Eyes: Denies: eye pain Ears, Nose, Throat: Denies: ear pain Cardiovascular: Denies: chest pain Respiratory: Denies: cough Gastrointestinal: Reports: abdominal pain, diarrhea Genitourinary female: Denies: urgency Musculoskeletal: Reports: joint pain, myalgia Integumentary: Denies: rash Neurological: Reports: weakness Psychiatric: Reports: depression, anhedonia. Denies: suicidal ideation, homicidal ideation, auditory hallucinations, visual hallucinations Endocrine: Reports: fatigue Hematologic/Lymphatic: Denies: easy bleeding Allergic/Immunologic: Denies: facial swelling Psychiatry Exam - Constitutional Vitals: Temp Pulse Resp BP Pulse Ox 98.8 F 74 20 117/71 95 07/31/18 11:23 07/31/18 11:23 07/31/18 11:23 07/31/18 11:23 07/31/18 11:23 General appearance: age & developmentally appropriate, disheveled - Musculoskeletal Gait: other (In chair) Station: relaxed Strength & Tone: mild weakness - Psychiatric Patient Orientation: Yes Person, Yes Time, Yes Place, Yes Circumstance Level of alertness: Alert Behavior: cooperative Psychomotor activity: Normal Eye Contact: Maintains Eye Contact Mood Description: Depressed Patient description of mood: Down Affect description: congruent with mood Speech Volume: Normal Speech pattern: normal rate, normal rhythm, normal tone, fluent, spontaneous Language & Vocabulary: consistent with education Thought Process: Linear, Goal Oriented Thought Content: No Suicidal ideation, No Homicidal ideation, No Overt delusions Perceptual Disturbances: No Auditory hallucinations, No Visual hallucinations Attention Span Ability: Capable of Focused Attention Memory Description: Grossly Intact Patient Reliability: Reliable Historian Fund of knowledge: Yes abstraction ability, Yes aware of current events Intelligence Estimate: Average Judgment: Good Insight: Full Results - Labs Labs: Laboratory Last Values WBC 2.5 K/mcL (4.3-11.1) L 07/30/18 05:18 RBC 2.86 M/mcL (3.82-4.97) L 07/30/18 05:18 Hgb 9.6 g/dL (11.5-15.4) L 07/30/18 05:18 Hct 26.4 % (35.3-44.9) L 07/30/18 05:18 MCV 92.3 fL (83.0-100.0) 07/30/18 05:18 MCH 33.6 pg (28.0-33.3) H 07/30/18 05:18 MCHC 36.4 g/dL (31.6-35.5) H 07/30/18 05:18 RDW 13.3 % (11.5-14.5) 07/30/18 05:18 Plt Count 38 K/mcL (140-400) L 07/30/18 05:18 MPV 12.2 fL (9.4-12.4) 07/30/18 05:18 Immature Gran % 0.5 % (0-4) 07/25/18 15:00 Seg Neutrophils % 60.8 % 07/25/18 15:00 23.4 % 07/25/18 15:00 10.7 % 07/25/18 15:00 4.1 % 07/25/18 15:00 0.5 % 07/25/18 15:00 2.4 K/mcL (1.6-8.9) 07/25/18 15:00 0.9 K/mcL (0.6-4.6) 07/25/18 15:00 0.4 K/mcL (0.0-1.3) 07/25/18 15:00 0.2 K/mcL (0.0-0.6) 07/25/18 15:00 0.0 K/mcL (0.0-0.2) 07/25/18 15:00 Immature Plt Fraction 5.5 % (1.1-6.1) 07/30/18 05:18 PT 14.2 Seconds (9.4-12.1) H 07/26/18 07:15 INR 1.3 07/26/18 07:15 Sodium 135 mEq/L (136-145) L 07/31/18 05:27 Potassium 3.7 mEq/L (3.5-5.1) 07/31/18 05:27 Chloride 105 mEq/L (98-107) 07/31/18 05:27 Carbon Dioxide 21 mEq/L (23-29) L 07/31/18 05:27 BUN 16 mg/dL (8-23) 07/31/18 05:27 1.07 mg/dL (0.60-1.20) 07/31/18 05:27 Est GFR ( Amer) > 60 (> 60) 07/31/18 05:27 Est GFR (Non-Af Amer) 51 (> 60) L 07/31/18 05:27 15 (6-26) 07/31/18 05:27 Glucose 140 mg/dL (70-105) H 07/31/18 05:27 POC Glucose 170 mg/dL (70-99) H 07/30/18 20:57 283 (280-300) 07/31/18 05:27 Calcium 10.1 mg/dL (8.6-10.3) 07/31/18 05:27 Phosphorus 2.2 mg/dL (2.7-4.5) L 07/31/18 05:27 Magnesium 1.4 mg/dL (1.6-2.6) L 07/31/18 05:27 1.3 mg/dL (0.3-1.0) H 07/26/18 07:15 0.3 mg/dL (0.0-0.2) H 07/25/18 15:00 0.6 mg/dL (0.0-1.2) 07/25/18 15:00 AST 69 Units/L (13-39) H 07/26/18 07:15 ALT 53 Units/L (7-52) H 07/26/18 07:15 133 Units/L (34-104) H 07/26/18 07:15 62 mcmol/L (16-53) H 07/30/18 05:18 41 Units/L (30-223) 07/25/18 15:00 6.2 g/dL (6.4-8.9) L 07/26/18 07:15 3.2 g/dL (3.5-5.7) L 07/26/18 07:15 3.0 g/dL (2.4-3.5) 07/26/18 07:15 1.1 (1.1-2.2) 07/26/18 07:15 119 Units/L (11-82) H 07/25/18 15:00 Yellow (Yellow) 07/25/18 16:34 Clear (Clear) 07/25/18 16:34 6.5 pH Units (5.0-8.0) 07/25/18 16:34 Ur Specific [place] 1.018 (1.010-1.025) 07/25/18 16:34 Negative mg/dL (Neg-Trace) 07/25/18 16:34 >=1000 mg/dL (Normal) H 07/25/18 16:34 Negative mg/dL (Negative) 07/25/18 16:34 Negative (Negative) 07/25/18 16:34 Negative (Negative) 07/25/18 16:34 Negative (Negative) 07/25/18 16:34 Normal mg/dL (Normal) 07/25/18 16:34 Ur Leukocyte Esterase Trace (Negative) H 07/25/18 16:34 0-3 per hpf (0-3) 07/25/18 16:34 0-3 per hpf (0-3) 07/25/18 16:34 Ur Squamous Epith Cells Many per lpf (None-Few) H 07/25/18 16:34 None Seen per hpf (None-Few) 07/25/18 16:34 Hyaline Casts None Seen per lpf (None-Few) 07/25/18 16:34 Ur Culture Indicated? YES (NO) A 07/25/18 16:34 70 mg/dL 07/25/18 16:34 42.1 mEq/L 07/25/18 16:34 653 mg/dL 05/13/19 16:34 Stl C. diff Tox B Gene Positive (Negative) A 07/26/18 18:02 Consult Discharge Plan - Plan Referrals: Addison Jeffery [Primary Care Provider] - Prescriptions: Vancomycin Oral Soln [Firvanq] 125 mg PO QID 10 Days #40 [facility]
[2018-07-31] MEDS: Insulin DETEMIR 100 UNIT/ML X5UNITS SQ SCH (20:33)
[2018-08-01 07:22] VITALS: BP 129/69
[2018-08-01 08:53] LABS: BUN/Creatinine Ratio 14 (6-26); Blood Urea Nitrogen 15 mg/dL (8-23); Carbon Dioxide 22 mEq/L (23-29); Chloride 105 mEq/L (98-107); Glucose 113 mg/dL (70-105); Magnesium 1.5 mg/dL (1.6-2.6); Osmolality,Calculated 284 (280-300); Phosphorous 2.8 mg/dL (2.7-4.5); Potassium 3.8 mEq/L (3.5-5.1); Sodium 136 mEq/L (136-145); eGFR For Non-African Americans 52 (> 60)
[2018-08-01] MEDS: Lactobacillus 1 EACH CAP.SPRINK PO SCH (08:56)
[2018-08-01] MEDS: Furosemide 40 MG TABLET PO SCH (08:56)
[2018-08-01] MEDS: FLUoxetine 20 MG CAPSULE PO SCH (08:56)
[2018-08-01] MEDS: Insulin LISPRO 300 UNITS/3 ML VIAL SQ SCH ×2 (08:56→12:26)
[2018-08-01] MEDS: Vancomycin Oral Soln 125 MG/2.5 ML UDC PO SCH ×2 (08:56→12:24)
--- NOTE | 2018-08-01 09:23 | Discharge Summary ---
- NOTES TO OUTPATIENT PROVIDER Notes to Outpatient Provider: follow up with GI and PCP as OP, to have CBC and CMP, magnesium and Po4 repeated in 1 week Date of Encounter: 08/01/18 Time of Encounter: 12:38 - Discharge Diagnosis (1) C. difficile colitis Priority: Primary Status: Acute (2) Hyperammonemia Priority: Secondary Status: Acute (3) Liver cirrhosis secondary to MICHELLE Priority: Secondary Status: Acute (4) Esophageal varices determined by endoscopy Priority: Secondary Status: Chronic (5) Hypophosphatemia Priority: Secondary Status: Acute (6) Diabetes Priority: Secondary Status: Chronic Qualifiers: Diabetes mellitus type: type 2 Diabetes mellitus parts counterman insulin use: unspecified parts counterman insulin use status Diabetes mellitus complication status: with unspecified complications Qualified Code(s): E11.8 - Type 2 diabetes mellitus with unspecified complications (7) GERD (gastroesophageal reflux disease) Priority: Secondary Status: Chronic Qualifiers: Esophagitis presence: esophagitis presence not specified Qualified Code(s): K21.9 - Gastro-esophageal reflux disease without esophagitis (8) HTN (hypertension) Priority: Secondary Status: Chronic Qualifiers: Hypertension type: essential hypertension Qualified Code(s): I10 - Essential (primary) hypertension (9) Thyroid disease Priority: Secondary Status: Chronic (10) HLD (hyperlipidemia) Priority: Secondary Status: Chronic Qualifiers: Hyperlipidemia type: pure hypercholesterolemia Qualified Code(s): E78.00 - Pure hypercholesterolemia, unspecified; E78.0 - Pure hypercholesterolemia (11) Chronic diastolic (congestive) heart failure Priority: Secondary Status: Acute (12) Hypomagnesemia Priority: Secondary Status: Acute (13) Hypercalcemia Priority: Secondary Status: Resolved (14) Hyperkalemia Priority: Secondary Status: Resolved (15) BHANU (acute kidney injury) Priority: Secondary Status: Resolved Hospital course: "Tonya Mann is a 72 F w hx MICHELLE cirrhosis c/b portal HTN, HTN, HFpEF, DM2, recurrent UTIs, C diff colitis, who p/w confusion and abnormal labs. Pt is poor historian due to some confusion. Her sister is present and provides much of the history. With prompting, pt does state that she had blood checked this morning and then was told to come to ED. Sister adds that patient has been seemingly groggy/confused for the last several days, and her appetite and intake have decreased over the last month. She says that the PCP increased both of the patient's water pills in late June. Says that overall since increasing water pills her leg swelling has improved quite a bit. She denies that pt has ever been confused or had hepatic encephalopathy before to her knowledge. Due to her confusion, outpatient labs ordered which revealed elevated Cr and K, and thus patient was directed to ED. Pt denies fever, abd pain, N/V, diarrhea, CP, SOB. She does incidentally note palpitations. In the ED, pt vitals unremarkable. Labs notable for Cr 1.9, Na 127, K 6.3, Cl 97, BUN 58, glucose 440, Ca 12.1, AST 63, alk phos 150, ammonia 75, lipase 120. UA unremarkable other than heavy glucosuria. Past medical, surgical, social, and family histories reviewed and updated as below." Patient presented with above presentation to the above ED course. She was admitted for decompensated Michelle cirrhosis and acute renal failure with hypovolemic hyponatremia. She was also found to have hyperkalemia on admission. As per documentation her Lasix dose was recently increased by her primary care physician. Lasix and spironolactone were held due to hypovolemia, hyponatremia, acute renal failure and hyperkalemia. She was started on lactulose as her ammonia level was elevated on admission- she was nash, oriented to person and place and time but not situation. Poor memory and concentration. She developed profuse amount of diarrhea greater than 10 times a day so C. difficile was sent which was positive. Lactulose was discontinued, she was started on oral vancomycin and GI was consulted. GI recommended to start the patient on rifaximin for elevated ammonia level and to hold off lactulose while she is being treated for C. difficile. RUQ 07/28: No evidence of hepatocellular carcinoma. AFP was 5 in may 2018. she remained Axox 3 while hospitalized. All electrolytes were replaced, she was treated with IV fluids and hypovolemic hyponatremia, acute renal failure resolved. She was found to have hypercalcemia on admission which resolved with IV hydration and Lasix. Lasix was started on a lower dose and spironolactone was reinitiated. BMP followed without signs of renal failure nor hyperkalemia. Her PCP to follow CBC and BMP in one week and further chest is medications. She had 3 bowel movements per day and she was told to continue with oral hydration once discharged home to avoid dehydration Home Keflex dose was held as she was on it for recurrent UTIs due to her developing C. difficile. She showed signs of depression while hospitalized and psych was consulted and recommended to increase her Prozac dose however she declined and she would referred to follow-up with her outpatient family physician for further readjustment of her medicines. Physical therapy and occupational therapy cleared the patient for discharge as long as she has 24-hour home care. Home health aide and physical home physical therapy was provided by the case management and social work. I discussed case with the family, sister at bedside who reports the family will have 24-hour care for her at home. They understand the risks associated with her not having care for 24 hours at home and they are assuming responsibility as patient is refusing to go to facility for further rehabilitation. she is to have close followup with her PCP and gastroenterology- appoinment provided by nursing staff. to have BMP, CBC, magnesium, Phosphorus repeated in 1 week Discharge discussed with: patient, family, nurse, social work, case management, clinical documentation consultant - Time Spent with Patient Total time spent providing and/or coordinating discharge services: Time spent: Greater than 30 minutes (50) - Discharge Medications Prescriptions: New Lactobacillus [Culturelle] 2 each PO DAILY #8 cap.sprink Vancomycin Oral Soln [Firvanq] 125 mg PO QID 4 Days #16 udc Rifaximin [Xifaxan] 550 mg PO BID 30 Days #60 tablet Continued HYDROcodone/Acet 5/325 mg [[place] 5-325 mg] 1 tab PO Q6H PRN PRN Reason: Pain Insulin Glargine [Lantus] 40 unit SQ HS Levothyroxine Sodium 112 mcg PO DAILY Pantoprazole Sodium 40 mg PO DAILY Valsartan 20 mg PO BID Rosuvastatin Calcium 5 mg PO DAILY Metformin HCl 500 mg PO BIDWM FLUoxetine HCl [Prozac] 20 mg PO DAILY Alendronate Sodium 70 mg PO QWEEK Calcium Carbonate/Vitamin D3 [Oyster Shell Calcium-Vit D Tab] 1 tab PO DAILY Carvedilol 3.125 mg PO BID LORazepam [Ativan] 1 mg PO BID PRN PRN Reason: Anxiety Multivitamin [One Daily Essential] 1 tab PO DAILY Spironolactone 50 mg PO BID Zinc Gluconate 100 mg PO TID Changed Furosemide [Lasix] 40 mg PO DAILY #0 Discontinued Potassium Chloride 10 meq PO DAILY #30 tab.er.prt cephALEXin [Keflex] 250 mg PO DAILY Home Medications: HYDROcodone/Acet 5/325 mg [[place] 5-325 mg] 1 tab PO Q6H PRN 10/04/17 [History] Insulin Glargine [Lantus] 40 unit SQ HS 10/04/17 [History] Levothyroxine Sodium 112 mcg PO DAILY 10/04/17 [History] Pantoprazole Sodium 40 mg PO DAILY 10/04/17 [History] Metformin HCl 500 mg PO BIDWM 12/06/17 [History] Rosuvastatin Calcium 5 mg PO DAILY 12/06/17 [History] Valsartan 20 mg PO BID 12/06/17 [History] FLUoxetine HCl [Prozac] 20 mg PO DAILY 02/07/18 [History] Alendronate Sodium 70 mg PO QWEEK 07/25/18 [History] Calcium Carbonate/Vitamin D3 [Oyster Shell Calcium-Vit D Tab] 1 tab PO DAILY 07/25/18 [History] Carvedilol 3.125 mg PO BID 07/25/18 [History] LORazepam [Ativan] 1 mg PO BID PRN 07/25/18 [History] Multivitamin [One Daily Essential] 1 tab PO DAILY 07/25/18 [History] Spironolactone 50 mg PO BID 07/25/18 [History] Zinc Gluconate 100 mg PO TID 07/25/18 [History] Furosemide [Lasix] 40 mg PO DAILY #0 08/01/18 [Rx] Lactobacillus [Culturelle] 2 each PO DAILY #8 cap.sprink 08/01/18 [Rx] Rifaximin [Xifaxan] 550 mg PO BID 30 Days #60 tablet 08/01/18 [Rx] Vancomycin Oral Soln [Firvanq] 125 mg PO QID 4 Days #16 udc 08/01/18 [Rx] Allergies/Adverse Reactions: Allergy/AdvReac Type Severity Reaction Status Date / Time nitrofurantoin Allergy Rash Verified 05/18/18 15:20 [From Macrobid] Sulfa (Sulfonamide Allergy Rash Verified 05/18/18 15:20 Antibiotics) exenatide [From Byetta] AdvReac Vomiting Verified 05/18/18 15:20 liraglutide [From Victoza] AdvReac Vomiting Verified 05/18/18 15:20 Date of admission: 07/25/18 19:02 Primary care physician: Addison Jeffery Consults: 07/27/18 13:06 Consult to Gastroenterology [CONS] Routine Consulting Provider: [facility] [place] Reason for Consult: cirrhosis MICHELLE, Cdif Call Completed: Yes 07/31/18 10:42 Consult to Psychiatry [CONS] Routine Consulting Provider: Psychiat[facility] Reason consult: Medication recommendation Other reason and/or additional details: uninteretsed, depressed has bursts of crying, loss of appetite. does have cirrhosis but ammoia level is less than her normal, AXox3 - Constitutional Vitals: Temp Pulse Resp BP Pulse Ox 98.5 F 76 18 129/69 97 08/01/18 07:17 08/01/18 07:17 08/01/18 07:17 08/01/18 07:17 08/01/18 07:17 Exam: Gen.: Nonacute distress, alert and oriented 3 ENT: Mucosal membranes moist Respiratory: Lungs are clear to auscultation bilaterally without any wheezing rhonchi or rales Cardiovascular: Normal S1 and S2 regular rate rhythm no murmurs rubs or gallops Abdomen: Soft, nontender and nondistended with positive bowel sounds, nontender, no rebound tenderness Extremities: No lower extremity edema, no calf tenderness Neurological: Axox 3, no flapping tremor, moving all extremities no focal deficit. Skin: Normal color Psych: flat affect, depressed - Patient Status Disposition: Home Health Service Condition: Good Functional capacity at discharge: uses cane/walker Overall status at discharge: patient is progressing back to baseline - Discharge Instructions Follow Up With: Addison Jeffery [Primary Care Provider] - 08/10/18 10:00 am (Please follow up as schedule...) Salome Davey MD [Partnered Physician] - (Web Requested 08/01/2018) Additional Instructions: to have BMP, CBC, magnesium, Phosphorus repeated in 1 week follow up with Gi and PCP - Diet and Activity Activity: as per physical therapy Diet: advance to your usual diet - VTE Documentation of Mechanical Device: Intermittent pneumatic compression device
--- NOTE | 2018-08-01 12:52 | Physician Discharge Referral ---
Home Health/Hosp Referral Info Transfer to: Home Health Provider in Charge Post Discharge: PCP - Diagnosis (1) C. difficile colitis Status: Acute (2) Hyperammonemia Status: Acute (3) 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 Status: Acute (4) Esophageal varices determined by endoscopy Status: Chronic (5) Hypophosphatemia Status: Acute (6) Diabetes Status: Chronic (7) GERD (gastroesophageal reflux disease) Status: Chronic (8) HTN (hypertension) Status: Chronic (9) Thyroid disease Status: Chronic (10) HLD (hyperlipidemia) Status: Chronic (11) Chronic diastolic (congestive) heart failure Status: Acute (12) Hypomagnesemia Status: Acute (13) Hypercalcemia Status: Resolved (14) Hyperkalemia Status: Resolved (15) BHANU (acute kidney injury) Status: Resolved - Respiratory Orders Smoking Cessation: Smoking cessation has been advised. For more information, call the [place] Tobacco Quit Line at 9-334-MSDM-NOW. - Services Needed Following services are medically necessary services: Nursing, Home Health Aide, Physical Therapy, Occupational Therapy - Transfer Medications Prescriptions: Lactobacillus [Culturelle] 2 each PO DAILY #8 cap.sprink Vancomycin Oral Soln [Firvanq] 125 mg PO QID 4 Days #16 udc Rifaximin [Xifaxan] 550 mg PO BID 30 Days #60 tablet Home Medications: HYDROcodone/Acet 5/325 mg [[place] 5-325 mg] 1 tab PO Q6H PRN 10/04/17 [History] Insulin Glargine [Lantus] 40 unit SQ HS 10/04/17 [History] Levothyroxine Sodium 112 mcg PO DAILY 10/04/17 [History] Pantoprazole Sodium 40 mg PO DAILY 10/04/17 [History] Metformin HCl 500 mg PO BIDWM 12/06/17 [History] Rosuvastatin Calcium 5 mg PO DAILY 12/06/17 [History] Valsartan 20 mg PO BID 12/06/17 [History] FLUoxetine HCl [Prozac] 20 mg PO DAILY 02/07/18 [History] Alendronate Sodium 70 mg PO QWEEK 07/25/18 [History] Calcium Carbonate/Vitamin D3 [Oyster Shell Calcium-Vit D Tab] 1 tab PO DAILY 07/25/18 [History] Carvedilol 3.125 mg PO BID 07/25/18 [History] LORazepam [Ativan] 1 mg PO BID PRN 07/25/18 [History] Multivitamin [One Daily Essential] 1 tab PO DAILY 07/25/18 [History] Spironolactone 50 mg PO BID 07/25/18 [History] Zinc Gluconate 100 mg PO TID 07/25/18 [History] Furosemide [Lasix] 40 mg PO DAILY #0 08/01/18 [Rx] Lactobacillus [Culturelle] 2 each PO DAILY #8 cap.sprink 08/01/18 [Rx] Rifaximin [Xifaxan] 550 mg PO BID 30 Days #60 tablet 08/01/18 [Rx] Vancomycin Oral Soln [Firvanq] 125 mg PO QID 4 Days #16 udc 08/01/18 [Rx] Allergies/Adverse Reactions: Allergy/AdvReac Type Severity Reaction Status Date / Time nitrofurantoin Allergy Rash Verified 05/18/18 15:20 [From Macrobid] Sulfa (Sulfonamide Allergy Rash Verified 05/18/18 15:20 Antibiotics) exenatide [From Byetta] AdvReac Vomiting Verified 05/18/18 15:20 liraglutide [From Victoza] AdvReac Vomiting Verified 05/18/18 15:20 Certification: Further, I certify that my clinical findings support that this patient is homebound (i.e. absences from home require considerable and taxing effort and are for medical reasons or jew services or infrequently or short duration when for other reasons) because: Homebound Reason: Patient requires assistance of a person or device to safely leave home Attestation: My signature below is to certify that this patient is under my care and that I, or nurse practitioner, or a physician's personnel assistant working with me, has a [id number] encounter with this patient.
== END 2018-08-01 14:47 | disposition home health service (06) | DRG 372 ==
LOC: EMEROOARM 14:29 → 2ANU 19:02 → SUATTDRO 19:02 → 2ANU 19:45
PROVIDERS: ADMIT Student in an Organized Health Care Education/Training Program; ATTEND Internal Medicine